=== PATIENT | female | born 1985 | race Caucasian/White ===

== ENCOUNTER 2020-05-19 15:26 | Emergency (ER) | payer OTHER, SELFPAY ==
--- NOTE | ~2020-05-19 | XR_ITS ---
EXAMINATION: XR hand LT min 3V DATE: 05/19/2020 15:54 INDICATION: Pain and bruising the region of the left second and third metacarpophalangeal joints. TECHNIQUE: Posteroanterior, oblique and lateral views of the left hand were obtained. COMPARISON: None. FINDINGS: Alignment is normal. No fracture. Joint spaces are normal. No cortical erosions or periosteal reactio n. Soft tissues are unremarkable. IMPRESSION: 1. Negative left hand radiographs. Reviewed, dictated and finalized at location A.
[2020-05-19 15:33] VITALS: BP 112/64; PULSE 109; RESP 20; TEMP 36.6; O2SAT 99
--- NOTE | 2020-05-19 15:42 | ED.GENADULT ---
HPI - General Adult General Chief complaint: Extremity Injury, Upper Stated complaint: left hand pain/bruising Time Seen by Provider: 05/19/20 15:42 Source: patient and RN notes reviewed Mode of arrival: ambulatory Limitations: no limitations History of Present Illness HPI narrative: This is a 34 years old female presented to the office for evaluations of left hand pain for 3 days. She noticed the swelling first before the bruising. She could not use her hand tomorrow hand at all today because of pain. She tried ibuprofen for pain. Denies direct trauma or injury. She is left hand dominated. Denies insect bite. Related Data Home Medications Medication Instructions Recorded Confirmed acyclovir 400 mg PO BID 05/19/20 05/19/20 amitriptyline 25 mg PO HS 05/19/20 05/19/20 conjugated estrogens [Premarin] 0.625 mg PO DAILY 05/19/20 05/19/20 escitalopram oxalate 5 mg PO DAILY 05/19/20 05/19/20 ibuprofen 600 mg PO TID 05/19/20 05/19/20 lorazepam 0.5 mg PO BID PRN 05/19/20 05/19/20 mirtazapine 30 mg PO DAILY 05/19/20 05/19/20 sumatriptan succinate 25 mg PO ONCE PRN 05/19/20 05/19/20 topiramate 25 mg PO DAILY 05/19/20 05/19/20 Allergies Allergy/AdvReac Type Severity Reaction Status Date / Time amoxicillin Allergy Intermediate Swelling Verified 05/19/20 15:41 Review of Systems Review of Systems: Narrative: CONSTITUTIONAL: Denies fever, chills ENT: Denies rhinorrhea, congestion, sore throat, otalgia. CARDIOVASCULAR: Denies chest pain, palpitation RESPIRATORY: Denies dyspnea, wheezing, cough GASTROINTESTINAL: Denies abdominal pain, nausea, vomiting SKIN: Reports left hand bruise MUSCULOSKELETAL: Reports left hand pain with swelling NEUROLOGIC: Denies lightheaded All other systems reviewed are negative, except as documented in HPI. [facility] Past Medical History Medical History Bipolar disorder Depression IBS (irritable bowel syndrome) Surgical History Surgical History History of section, low vertical Hx of appendectomy Comments At time of signature, I agree with nursing past medical, surgical, social and family history. There is no relevant family history pertinent to the presenting complaint. Exam Narrative: Exam Narrative: GENERAL: This is a well-nourished, well-developed patient, in no apparent distress. CARDIOVASCULAR: Regular rate and rhythm without murmurs, gallops, or rubs. RESPIRATORY: Clear to auscultation. Breath sounds equal bilaterally. No wheezes, rales, or rhonchi. GASTROINTESTINAL: Abdomen soft, non-tender, nondistended. Bowel sounds are active. No hepato-splenomegaly, or palpable masses. No guarding. SKIN: warm, intact with no suspicious lesions or rash, good texture and turgor. NEURO: awake, alert, and oriented to person, place and time. There were no obvious focal neurologic abnormalities. Steady gait EXTREMITIES: The dorsum of the hand is WITHOUT swollen; however there is tender to palpation between 1-3digits. The skin is intact. Flexion and extension of the fingers is full and strong. Ulnar and radial pulses intact. Negative Phalen's test/Tinel's sign. Negative Bharati test. Moffett Coma Scale Eye Opening: Spontaneous 4 Asim Coma Scale Motor: Obeys Commands 6 Moffett Coma Scale Verbal: Oriented 5 Course Vital Signs Vital signs: Vital Signs Temperature 97.9 F 05/19/20 15:33 Pulse Rate 109 H 05/19/20 15:33 Respiratory Rate 05/19/20 15:33 Blood Pressure 112/64 05/19/20 15:33 Pulse Oximetry 99 05/19/20 15:33 Temperature 97.9 F 05/19/20 15:33 Pulse Rate 109 H 05/19/20 15:33 Respiratory Rate 05/19/20 15:33 Blood Pressure 112/64 05/19/20 15:33 Pulse Oximetry 99 05/19/20 15:33 Medical Decision Making MDM Narrative Medical decision making narrative: Discharge instructions reviewed with patient, as well as provided in writing p
== END 2020-05-19 16:15 | disposition home or self-care (01) ==
PROVIDERS: Emergency Provider Nurse Practitioner; PCP Nurse Practitioner Family
DX: M77.9 Enthesopathy, unspecified (principal); F32.9 Major depressive disorder, single episode, unspecified
CPT/HCPCS: 73130; 99213; G0463

== ENCOUNTER 2020-06-08 12:53 | Outpatient (CLI) | payer OTHER, SELFPAY ==
--- NOTE | ~2020-06-08 | US_ITS ---
EXAMINATION: US pelvic complete w TV DATE: 06/08/2020 13:33 INDICATION: Dyspareunia, hysterectomy TECHNIQUE: Multiple transabdominal and endovaginal sonographic images of the pelvis were obtained. COMPARISON: None. FINDINGS: The uterus is surgically absent. The right ovary measures 2.2 x 2.0 x 1.8 cm. The left ovar y measures 4.7 x 3.7 x 2.3 cm. There is normal vascular flow in the ovaries. There is no free fluid i n the pelvis. IMPRESSION: 1. No sonographic correlate for the patient's symptoms. Reviewed, dictated and finalized at location B.
== END 2020-06-08 12:54 | disposition home or self-care (01) ==
PROVIDERS: PCP Nurse Practitioner Family; Visit Provider Nurse Practitioner Family
DX: F52.6 Dyspareunia not due to a substance or known physiological condition (principal)
CPT/HCPCS: 76830; 76856

== ENCOUNTER 2020-10-21 12:57 | Outpatient (CLI) | payer OTHER, SELFPAY ==
--- NOTE | ~2020-10-21 | CT_ITS ---
EXAMINATION: CT pelvis w con DATE: 10/21/2020 14:05 INDICATION: Chronic pelvic pain. TECHNIQUE: Computed tomography (CT) of the pelvis was performed with 100 mL Omnipaque 350 intravenous contrast. Automated exposure control and iterative reconstruction technique were employed. The dose- length product was 241.00 mGy-cm. COMPARISON: Pelvis ultrasound 06/08/2020 FINDINGS: There are no dilated loops of bowel. There are changes of appendectomy. There are changes o f hysterectomy. The ovaries are normal. There are no pathologically enlarged lymph nodes. There is tr danielle pelvic ascites. There are masses in the vulva bilaterally measuring up to 12 mm on the right. The bones are unremarkable. IMPRESSION: 1. Small masses in the vulva, likely cysts. Reviewed, dictated and finalized at location B. [employer]
== END 2020-10-21 12:58 | disposition home or self-care (01) ==
PROVIDERS: PCP Nurse Practitioner Family; Visit Provider Nurse Practitioner Family
DX: R10.2 Pelvic and perineal pain (principal)
CPT/HCPCS: 72193; Q9967

== ENCOUNTER 2021-03-03 08:59 | Outpatient (CLI) | payer OTHER, SELFPAY ==
--- NOTE | ~2021-03-03 | US_ITS ---
EXAMINATION: US soft tissue abdomen DATE: 03/03/2021 09:27 INDICATION: Left lower quadrant/pelvic pain. TECHNIQUE: Multiple grayscale and Doppler ultrasound images of the region of concern at the left pelv is were obtained including with Valsalva. COMPARISON: CT dated 10/21/2020 FINDINGS: Shadowing bowel is seen in the left lower quadrant/pelvic region of concern. Also seen along the ante rior left pelvic wall is a left ovary which measures 3.4 x 2.3 x 3.0 cm. Vascular flow seen on color Doppler in the left ovary with arterial and venous waveforms. No inguinal hernia. IMPRESSION: 1. Normal left ovary and no left inguinal hernia. Reviewed, dictated and finalized at location A.
== END 2021-03-03 09:00 | disposition home or self-care (01) ==
PROVIDERS: PCP Nurse Practitioner Family; Visit Provider Obstetrics & Gynecology
DX: R10.9 Unspecified abdominal pain (principal)
CPT/HCPCS: 76705

== ENCOUNTER 2021-05-10 10:00 | Outpatient (RCR) | payer OTHER, SELFPAY ==
--- NOTE | 2021-04-07 15:24 | PTOPEVAL ---
INITIAL PHYSICAL THERAPY EVALUATION and PLAN OF CARE Thank you for referring Lisa Alvarado to [facility].? Maris is scheduled to be seen for physical therapy? 2x/week for 2 weeks, 1x/wk x 4 wks. Please review, sign, date and return this plan of care GOLDIE. I agree with and certify that the following plan of care is medically necessary. Referring Physician Date Admitting Provider: Attending Provider: Katerine Macias MD Referring Provider: *PT Outpatient Evaluation Start: 04/07/21 13:36 Freq: Status: Active Protocol: Document 04/07/21 13:34 MARY (Rec: 04/07/21 15:13 MARY [id number]) Therapy Assessment Status Assessment Status Assessment Status Evaluation Outpatient Past Medical History Past Medical History Source of Past Medical History Recalled from Previous Visit, Confirmed with Patient/Family Gastrointestinal History Hx Appendectomy Yes Hx Irritable Bowel Yes Hx Other Gastrointestinal Disorders Yes: CONSTIPATION Genitourinary History Hx Bladder Surgery Yes: NICKED DURING - REPAIRED, reconstructed Hx Other Genitourinary Disorders Yes: CYSTOSCOPES POST C- SECTION, VESICOVAGINAL FISTULA Endocrine History Hx Hyperthyroidism Yes Hx Other Endocrine Disorders Yes: cyst on thyroid - drained 2005 Reproductive History Hx Section Yes: 2006 Hx Hysterectomy Yes: 10/09/2008 Hx Other Reproductive Disorders Yes: RIGHT BREAST TUMOR REMOVED-BENIGN,clips in breasts Psychosocial History Hx Bipolar Disorder Yes Hx Depression Yes Evaluation Information Problem Diagnosis pelvic and perineal pain Onset ~ 2 years ago - worsening Additional Evaluation Detail was born with 2 cervix, 2 uterus, 3 ovaries there was a wall within vagina cysts present within uteri Subjective Information Put on 50# since November 2019 - Query Text:As Reported By Patient/ intentional - was underweight Family at 100# Maris reports a stabbing pain - more on L side - lower abdominal region. Notices the discomfort with physical activity - or afterwards. Has limited the amount of weight that she picks up. Carries trays on R side. Increase in difficulty with urination and defecation.
--- NOTE | 2021-05-19 09:32 | PCPTNOTE ---
Patient did not show up for scheduled appointment this date. Follow up phone call made - Maris arnoldbetsy - Dad is very ill. Reminded her of next appointment on 05/24 at 8:00.
--- NOTE | 2021-05-24 08:30 | PCPTNOTE ---
Patient did not show up for scheduled appointment this date. When I spoke with Maris last week, she stated that her father was very ill. This was her re-eval appointment. Will await to see if she calls to reschedule missed appointments.
--- NOTE | 2021-06-13 16:07 | PCPTNOTE ---
PHYSICAL THERAPY DISCHARGE SUMMARY Admitting Provider: Attending Provider: Katerine Macias MD Patient:Lisa Alvarado Date of :1985 Maris has not returned for any further treatments since 05/10/2021. She did not show for her last 2 appointments due to illness with her father. Therefore she will be discharged at this time. Patient?s initial visit was on 04/07/2021 13:30 and she had a total of 5 visits. The goals have been partially met. Thank you for referring Maris to [facility]. Please review, sign, date and return this discharge summary GOLDIE. I have been updated about Maris's current status and I agree with discharge from the above service at this time. Referring Physician Date
== END 2021-06-23 07:43 | disposition home or self-care (01) ==
LOC: ANHPT 10:00
PROVIDERS: PCP Nurse Practitioner Family; Visit Provider Obstetrics & Gynecology
DX: R10.2 Pelvic and perineal pain (principal)
CPT/HCPCS: 97110; 97140; 97162

== ENCOUNTER 2022-12-11 14:19 | Emergency (ER) | payer OTHER, SELFPAY ==
--- NOTE | 2022-12-11 14:23 | ED.EAR ---
HPI - Ear Problem General Chief complaint: Ear Stated complaint: ear infection Time Seen by Provider: 12/11/22 14:27 Source: patient and RN notes reviewed Mode of arrival: ambulatory Limitations: no limitations History of Present Illness HPI Narrative: 37-year-old female presents concern for left ear pain for 2 days. She reports nasal congestion, rhinorrhea, some dry throat. She reports she has taken ibuprofen without relief. She denies fever, drainage from the ear. MD Complaint: ear pain Related Data Home Medications Medication Instructions Recorded Confirmed amitriptyline 25 mg tablet 25 mg PO HS 05/19/20 12/11/22 conjugated estrogens 0.625 mg 0.625 mg PO DAILY 05/19/20 12/11/22 tablet (Premarin) escitalopram oxalate 5 mg tablet 5 mg PO DAILY 05/19/20 12/11/22 aripiprazole 5 mg tablet 5 mg PO DAILY 12/11/22 12/11/22 Allergies Allergy/AdvReac Type Severity Reaction Status Date / Time amoxicillin Allergy Intermediate Swelling Verified 12/11/22 14:28 Review of Systems Review of Systems: CONSTITUTIONAL: Denies malaise, chills, sweats, or fever. EYES: Denies visual changes, redness, or discharge. ENT: Reports rhinorrhea, congestion. Denies sinus pain, and sore throat. Reports left ear pain CARDIOVASCULAR: Denies chest pain, palpitations, or edema. RESPIRATORY: Denies cough. Denies dyspnea. GASTROINTESTINAL: Denies abdominal pain, nausea, vomiting, diarrhea SKIN: Denies rash or itching. MUSCULOSKELETAL: Denies myalgia. NEUROLOGIC: Denies headache. All systems reviewed & are unremarkable except as noted in HPI and below PMFSH Past Medical History Medical History (Updated 12/11/22 @ 14:35 by Nita Hoffmann NP) Bipolar disorder Depression IBS (irritable bowel syndrome) Surgical History Surgical History History of section, low vertical Hx of appendectomy Comments At time of signature, agree with nursing past medical, surgical, social and family history. There is no relevant family history pertinent to the presenting complaint Exam Narrative: GENERAL: Well-appearing, well-nourished, and in no acute distress. HEAD: Normocephalic EYES: PERRLA, conjunctivae clear ENT: Nares clear, turbinates edematous, clear discharge. Mucous membranes moist. TM pearly rosales with sharp light reflex bilaterally; no tragal tenderness. Oropharynx not erythematous without lesions. Tonsils not enlarged and without exudate, no drooling, no hoarseness, no trismus, uvula midline. NECK: Supple. No lymphadenopathy CHEST: Clear to auscultation, breath sounds equal. No wheezing, rhonchi, rales, or stridor. No respiratory distress, speaks in full sentences. HEART: Regular rate and rhythm. No murmur heard. SKIN: Warm, dry, no rash. NEURO: Alert and oriented x3. PSYCH: Normal mood and affect Course Course Emergency Course: Patient is aware of diagnosis, understands and agrees to treatment plan. Anticipatory guidance given. Patient agrees to follow-up as directed and is aware of reasons to seek care at the emergency department. Portions of this record may have been created with voice recognition software Level of Care: Express Care Visit Vital Signs Vital signs: Reviewed. Medical Decision Making MDM Narrative Medical decision making narrative: Differential diagnosis considered: Wood virus, strep pharyngitis, allergic rhinitis, upper respiratory tract infection, sinusitis, rhinosinusitis, nasopharyngitis. viral pharyngitis, otitis media, otitis externa, otitis effusion, cerumen impaction, foreign body. Exam findings show no acute concerns or changes; patient is non-toxic appearing and is in no distress. Patient is appropriate for outpatient treatment and follow-up. Critical Care Time Critical Care Time Critical Care Time: No Discharge Plan Discharge Clinical Impression: Upper respiratory infection Patient Disposition: Home, Self-Care Condition: Stable
[2022-12-11 14:25] VITALS: BP 116/70; PULSE 90; RESP 16; TEMP 36.7; O2SAT 100
== END 2022-12-11 14:40 | disposition home or self-care (01) ==
PROVIDERS: Emergency Provider Nurse Practitioner; PCP Nurse Practitioner Family
DX: F32.A Depression, unspecified (principal)
CPT/HCPCS: 99213; G0463

== ENCOUNTER 2023-07-16 14:02 | Emergency (ER) | payer OTHER, SELFPAY ==
--- NOTE | 2023-07-16 14:10 | ED.URI ---
HPI - URI/Sore Throat General Chief Complaint: Upper Respiratory Infection Stated Complaint: Chest Congestion/Cough Time Seen by Provider: 07/16/23 14:20 Source: patient Mode of arrival: ambulatory Limitations: no limitations History of Present Illness HPI Narrative: Lisa is a 37-year-old female patient presenting to the clinic today with complaints of chest congestion, sore throat, and cough that began this morning. Did have COVID 2 months ago. Denies any shortness of breath or chest pain. States she does have some nasal congestion, chest congestion, and a cough. No fever or chills. No known exposure to anybody with COVID, flu, or strep MD elicited complaint: sore throat and nasal congestion Related Data Home Medications Medication Instructions Recorded Confirmed amitriptyline 25 mg tablet 25 mg PO HS 05/19/20 12/11/22 conjugated estrogens 0.625 mg 0.625 mg PO DAILY 05/19/20 12/11/22 tablet (Premarin) escitalopram oxalate 5 mg tablet 5 mg PO DAILY 05/19/20 12/11/22 aripiprazole 5 mg tablet 5 mg PO DAILY 12/11/22 12/11/22 Allergies Allergy/AdvReac Type Severity Reaction Status Date / Time amoxicillin Allergy Intermediate Swelling Verified 12/11/22 14:28 Review of Systems Review of Systems: Pertinent positives per HPI. Patient denies any fever, chills, rash, headache, visual changes, dizziness, cough, shortness of breath, chest pain, palpitations, nausea, vomiting, diarrhea, constipation, abdominal pain, or any urinary issues. [facility] Past Medical History Medical History (Updated 07/16/23 @ 14:27 by Allen Hernandez APRN) Bipolar disorder Depression IBS (irritable bowel syndrome) Surgical History Surgical History History of section, low vertical Hx of appendectomy Comments At the time of my signature, I reviewed and agree with the nursing past medical, surgical, social, and family history. There is no relevant family history pertinent to the patient complaint. Exam Narrative: General: Well-developed, well nourished, in no apparent distress Head: Normocephalic, atraumatic Eyes: Pupils equally round and reactive to light bilaterally, EOM intact, sclera and conjunctive clear, no discharge, lids normal Ears: TMs intact and congested, ear canals clear, no drainage, grossly hearing normal. Nose: Nares patent, clear nasal discharge, mild inflammation, no sinus tenderness. Mouth: Oral pharynx without lesions or masses, good dentition, MMM. Neck: Supple, trachea midline, no enlargement of anterior or posterior cervical nodes, no thyroid masses or goiter palpable. Cardio: Regular rate and rhythm, s1 and s2 normal, no murmur appreciated. Resp: Clear to auscultation bilaterally, no rhonchi, rales, wheezing or rubs Course Course Emergency Course: Portions of this record may have been created with voice recognition software. Level of Care: Express Care Visit Vital Signs Vital signs: Vital signs reviewed MDM - URI/Sore Throat MDM Narrative Medical decision making narrative: At the time of visit patient is resting comfortably on exam table. Strep screen was obtained was negative. Patient has had COVID 2 months ago sore do not feel as though testing for COVID is necessary at this time. She denies any fever, chills, body aches so no flu test was completed. I suspect patient has URI. Supportive measures were discussed with the patient she voiced understanding of discharge instructions agrees to treatment plan Differential Diagnosis Differential diagnosis: Likely upper respiratory infection, otitis media, sinusitis, viral infection, bronchitis, influenza, pharyngitis and other (COVID) Discharge Plan Discharge Clinical Impression: Upper respiratory infection Patient Disposition: Home, Self-Care Condition: Stable Instructions: Antibiotic Form, Upper Respiratory Infection (ED), Postnasal Drip (DC) Additional In
== END 2023-07-16 14:32 | disposition home or self-care (01) ==
PROVIDERS: Emergency Provider Nurse Practitioner Family; PCP Nurse Practitioner Family
DX: J06.9 Acute upper respiratory infection, unspecified (principal); F32.A Depression, unspecified; Z86.16 Personal history of COVID-19
CPT/HCPCS: 87081; 87880; 99213; G0463

== ENCOUNTER 2023-10-09 08:58 | Emergency (ER) | payer OTHER, SELFPAY ==
--- NOTE | ~2023-10-09 | XR_ITS ---
Right Hand Technique: PA, oblique, and lateral views were obtained. Clinical History: Pain Findings: No acute fracture or dislocation is seen. Osseous alignment is anatomic. Joint spaces are p reserved. Soft tissues are unremarkable. Impression: Unremarkable right hand. 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
[2023-10-09 09:08] VITALS: BP 122/72; PULSE 88; RESP 20; TEMP 36.8; O2SAT 99
--- NOTE | 2023-10-09 09:34 | ED.UPPEXIN ---
HPI - Extremity Injury (Upper) General Chief Complaint: Extremity Injury, Upper Stated Complaint: right hand injury Time Seen by Provider: 10/09/23 09:34 Source: patient, RN notes reviewed and old records reviewed Mode of arrival: ambulatory Limitations: no limitations History of Present Illness HPI narrative: 37 year old female who presents to [facility] care with complaints of falling on Sunday in kitchen on linoleum floor and trying to catch herself with her right hand and landed hitting dorsal area of her right hand. Patient has pain along the dorsal aspect of her 2nd and 3rd finger proximal knuckle region with some swelling noted to dorsal hand with no ecchymosis noted. Patient is able to move right hand and fingers without difficulty but with some stated pain. Patient has been taking Ibuprofen for her discomfort. Patient is left hand dominant. MD complaint: injury to: right and hand Onset (ago): day(s) (on Sunday day 3 of symptoms.) Handedness: left Place: home Severity scale (1-10): 7 Treatments prior to arrival: NSAIDS Related Data Home Medications Medication Instructions Recorded Confirmed conjugated estrogens 0.625 mg 0.625 mg PO DAILY 05/19/20 10/09/23 tablet (Premarin) aripiprazole 5 mg tablet 5 mg PO DAILY 12/11/22 10/09/23 lorazepam 1 mg tablet 1 mg PO TID PRN Anxiety 09/12/23 10/09/23 amitriptyline 50 mg tablet 50 mg PO QHS 10/09/23 10/09/23 cholecalciferol (vitamin D3) 1,250 1,250 mcg PO WEEKLY 10/09/23 10/09/23 mcg (50,000 unit) capsule escitalopram oxalate 10 mg tablet 10 mg PO DAILY 10/09/23 10/09/23 ropinirole 0.5 mg tablet 0.5 mg PO TID 10/09/23 10/09/23 Allergies Allergy/AdvReac Type Severity Reaction Status Date / Time amoxicillin Allergy Intermediate Swelling Verified 10/09/23 09:23 Review of Systems Review of Systems: CONSTITUTIONAL: Denies fever, chills, or sweats. EYES: Denies visual changes, redness, or discharge. ENT: Denies rhinorrhea, congestion, sore throat, or otalgia. CARDIOVASCULAR: Denies chest pain, palpitations, or edema. RESPIRATORY: Denies cough or dyspnea. GASTROINTESTINAL: Denies abdominal pain, nausea, vomiting, or diarrhea. GENITOURINARY: Denies dysuria or hematuria. SKIN: Denies rash or itching. MUSCULOSKELETAL: Denies back pain, positive for right dorsal hand pain and swelling, or myalgia. NEUROLOGIC: Denies headache, numbness, or weakness. PSYCHIATRIC: Reports history of anxiety or depression. All systems reviewed & are unremarkable except as noted in HPI and below PMFSH Past Medical History Medical History Bipolar disorder Depression IBS (irritable bowel syndrome) Surgical History Surgical History H/O: hysterectomy History of bladder surgery History of section, low vertical Hx of appendectomy Family History Family History Mother Cervical cancer Grandparent Heart disease Social History Social History Smoking status: Former smoker Alcohol intake: never Substance use: current Substance use type: marijuana Lack of Transportation: No Lack of Food: Never True Current Housing: I Have Housing Concerned About Future Housing: No Difficulty Paying Gas/Electric Bills: No Difficulty Paying for Meds: No Currently Unemployed: No Education: High School Diploma/GED Difficulty w/ Childcare or Family Care: No Living arrangements: with family Occupation/Education: occupation Gender identity (if verbalized by the patient): Female Sexual Orientation (if Verbalized by the Patient): Straight or Heterosexual Comments At time of signature, agree with nursing past medical, surgical, social and family history. There is no relevant family history pertinent to the presenting complaint Exam Narrative: GENERAL
== END 2023-10-09 10:07 | disposition home or self-care (01) ==
PROVIDERS: Emergency Provider Registered Nurse; PCP Nurse Practitioner Family
DX: S60.221A Contusion of right hand, initial encounter (principal); Z79.899 Other long term (current) drug therapy; Z87.891 Personal history of nicotine dependence; W18.30XA Fall on same level, unspecified, initial encounter; Y92.000 Kitchen of unspecified non-institutional (private) residence as the place of occurrence of the external cause
CPT/HCPCS: 73130; 99213; G0463

== ENCOUNTER 2023-11-20 10:17 | Emergency (ER) | payer OTHER, SELFPAY ==
[2023-11-20 10:24] VITALS: BP 125/69; PULSE 80; RESP 14; TEMP 36.7; O2SAT 100
--- NOTE | 2023-11-20 10:58 | ED.URI ---
HPI - URI/Sore Throat General Chief Complaint: Upper Respiratory Infection Stated Complaint: drainage/cough Time Seen by Provider: 11/20/23 10:59 Source: patient, RN notes reviewed and old records reviewed Mode of arrival: ambulatory Limitations: no limitations History of Present Illness HPI Narrative: 38-year-old female who presents to [facility] Care with 3 day history of cough, sinus congestion, drainage with pressure and headache for the past 3 days. Patient reports that she has no sore throat or any fevers or body aches, reports some rib pain related to frequent cough. Patient reports that she has been taking OTC Tylenol and cold and sinus medications for her symptoms. Patient reports no shortness of breath, nausea or vomiting or diarrhea. MD elicited complaint: cough, rhinorrhea, nasal congestion and sinus pain Pertinent past history: sinusitis and other (former smoker quit 6 months ago) Onset (ago): day(s) (3) Severity: mild Treatments prior to arrival: other (Tylenol cold and sinus) Related Data Home Medications Medication Instructions Recorded Confirmed conjugated estrogens 0.625 mg 0.625 mg PO DAILY 05/19/20 11/20/23 tablet (Premarin) aripiprazole 5 mg tablet 5 mg PO DAILY 12/11/22 11/20/23 lorazepam 1 mg tablet 1 mg PO TID PRN Anxiety 09/12/23 11/20/23 amitriptyline 50 mg tablet 50 mg PO QHS 10/09/23 11/20/23 cholecalciferol (vitamin D3) 1,250 1,250 mcg PO WEEKLY 10/09/23 11/20/23 mcg (50,000 unit) capsule escitalopram oxalate 10 mg tablet 10 mg PO DAILY 10/09/23 11/20/23 ropinirole 0.5 mg tablet 0.5 mg PO TID 10/09/23 11/20/23 Allergies Allergy/AdvReac Type Severity Reaction Status Date / Time amoxicillin Allergy Intermediate Swelling Verified 11/20/23 11:00 Review of Systems Review of Systems: CONSTITUTIONAL: Reports malaise, no chills, sweats, or fever. EYES: Denies visual changes, redness, or discharge. ENT: Reports rhinorrhea, congestion, sinus pain,no otalgia and no sore throat. CARDIOVASCULAR: Denies chest pain, palpitations, or edema. RESPIRATORY: Reports cough.? Denies dyspnea.reports rib discomfort from coughing GASTROINTESTINAL: Denies abdominal pain, nausea, vomiting, diarrhea SKIN: Denies rash or itching. MUSCULOSKELETAL: Denies myalgia. NEUROLOGIC: Reports headache. All systems reviewed & are unremarkable except as noted in HPI and below PMFSH Past Medical History Medical History Bipolar disorder Depression IBS (irritable bowel syndrome) Surgical History Surgical History H/O: hysterectomy History of bladder surgery History of section, low vertical Hx of appendectomy Family History Family History Mother Cervical cancer Grandparent Heart disease Social History Social History (Updated 11/20/23 @ 11:11 by Jessica Calix NP) Smoking status: Former smoker Additional smoking assessment comments: Quit 6 months ago Alcohol intake: never Substance use: current Substance use type: marijuana Lack of Transportation: No Lack of Food: Never True Current Housing: I Have Housing Concerned About Future Housing: No Difficulty Paying Gas/Electric Bills: No Difficulty Paying for Meds: No Currently Unemployed: No Education: High School Diploma/GED Difficulty w/ Childcare or Family Care: No Living arrangements: with family Occupation/Education: occupation Gender identity (if verbalized by the patient): Female Sexual Orientation (if Verbalized by the Patient): Straight or Heterosexual Comments At time of signature, agree with nursing past medical, surgical, social and family history. There is no relevant family history pertinent to the presenting complaint Exam Narrative: GENERAL: Well-appearing, well-nourished, and in no acute distress. HEAD: Normocephalic
== END 2023-11-20 11:17 | disposition left against medical advice (07) ==
PROVIDERS: Emergency Provider Registered Nurse; PCP Nurse Practitioner Family
DX: J06.9 Acute upper respiratory infection, unspecified (principal); Z20.822 Contact with and (suspected) exposure to COVID-19; Z87.891 Personal history of nicotine dependence; F12.90 Cannabis use, unspecified, uncomplicated; F41.9 Anxiety disorder, unspecified
CPT/HCPCS: 87426; 87804; 99213; G0463

== ENCOUNTER 2023-11-25 09:59 | Emergency (ER) | payer OTHER, SELFPAY ==
[2023-11-25 10:02] VITALS: BP 125/71; PULSE 104; RESP 20; TEMP 36.8; O2SAT 100
--- NOTE | 2023-11-25 10:26 | ED.GENADULT ---
HPI - General Adult General Chief complaint: Upper Respiratory Infection Stated complaint: congestion/cough/headache Time Seen by Provider: 11/25/23 10:26 Source: patient, RN notes reviewed and old records reviewed Mode of arrival: ambulatory Limitations: no limitations History of Present Illness HPI narrative: 38 year old female who presents to the [facility] care with complaints of 10 day history of continued yellow sinus drainage with some blood streaks now,, cough worse at night, headache worsening . Patient was seen on Sunday and prescribed steroids with no improvement in her symptoms. Patient denies any fevers, shortness of breath, no nausea vomiting or diarrhea. Patient has been taking Advil cold and sinus and also some NyQuil MD complaint: sinus congetion and drainage ,cough and headaches. Onset (ago): day(s) () Severity scale (1-10): 8 Treatments prior to arrival: other (Advil cold and sinus,Steroid and NyQuil) Related Data Home Medications Medication Instructions Recorded Confirmed conjugated estrogens 0.625 mg 0.625 mg PO DAILY 05/19/20 11/25/23 tablet (Premarin) aripiprazole 5 mg tablet 5 mg PO DAILY 12/11/22 11/25/23 lorazepam 1 mg tablet 1 mg PO TID PRN Anxiety 09/12/23 11/25/23 amitriptyline 50 mg tablet 50 mg PO QHS 10/09/23 11/25/23 cholecalciferol (vitamin D3) 1,250 1,250 mcg PO WEEKLY 10/09/23 11/25/23 mcg (50,000 unit) capsule escitalopram oxalate 10 mg tablet 10 mg PO DAILY 10/09/23 11/25/23 ropinirole 0.5 mg tablet 0.5 mg PO TID 10/09/23 11/25/23 Allergies Allergy/AdvReac Type Severity Reaction Status Date / Time amoxicillin Allergy Intermediate Swelling Verified 11/25/23 10:24 Review of Systems Review of Systems: CONSTITUTIONAL:Reports malaise,no chills, sweats, or fever. EYES: Denies visual changes, redness, or discharge. ENT: Reports rhinorrhea, congestion, sinus pain, no otalgia and no sore throat. CARDIOVASCULAR: Denies chest pain, palpitations, or edema. RESPIRATORY: Reports cough.? Denies dyspnea increased cough at night GASTROINTESTINAL: Denies abdominal pain, nausea, vomiting, diarrhea SKIN: Denies rash or itching. MUSCULOSKELETAL: Denies myalgia. NEUROLOGIC: reports frontal headache. All systems reviewed & are unremarkable except as noted in HPI and below PMFSH Past Medical History Medical History Bipolar disorder Depression IBS (irritable bowel syndrome) Surgical History Surgical History H/O: hysterectomy History of bladder surgery History of section, low vertical Hx of appendectomy Family History Family History Mother Cervical cancer Grandparent Heart disease Social History Social History Smoking status: Former smoker Additional smoking assessment comments: Quit 6 months ago Alcohol intake: never Substance use: current Substance use type: marijuana Lack of Transportation: No Lack of Food: Never True Current Housing: I Have Housing Concerned About Future Housing: No Difficulty Paying Gas/Electric Bills: No Difficulty Paying for Meds: No Currently Unemployed: No Education: High School Diploma/GED Difficulty w/ Childcare or Family Care: No Living arrangements: with family Occupation/Education: occupation Gender identity (if verbalized by the patient): Female Sexual Orientation (if Verbalized by the Patient): Straight or Heterosexual Comments At time of signature, agree with nursing past medical, surgical, social and family history. There is no relevant family history pertinent to the presenting complaint Exam Narrative: GENERAL: Well-appearing, well-nourished, and in no acute distress. HEAD: Normocephalic EYES: PERRLA, conjunctivae clear ENT: Nares clear, turbinates edematous
== END 2023-11-25 10:50 | disposition home or self-care (01) ==
PROVIDERS: Emergency Provider Registered Nurse; PCP Nurse Practitioner Family
DX: J01.90 Acute sinusitis, unspecified (principal); Z87.891 Personal history of nicotine dependence; F12.90 Cannabis use, unspecified, uncomplicated; F32.A Depression, unspecified
CPT/HCPCS: 99213; G0463

== ENCOUNTER 2024-05-13 16:23 | Emergency (ER) | payer OTHER, SELFPAY ==
--- NOTE | ~2024-05-13 | XR_ITS ---
XR chest 2V Ordering provider: Lan Alfred MD History: 38 years Female with . chest pain x 1 day . Comparison: None. FINDINGS: MEDIASTINUM: The cardiac silhouette is not enlarged. LUNGS: No infiltrates, effusions or pneumothorax. OTHER: No free air under the diaphragm. IMPRESSION: No acute cardiopulmonary pathology. Reviewed, dictated and finalized at location A.
--- NOTE | 2024-05-13 16:24 | ECG_ITS ---
Test Date: 2024-05-13 16:27:26 Measurements Intervals Andrews Rate: 107 P: 46 CT: 129 QRS: 18 QRSD: 90 T: 22 QT: 331 QTc: 443 Interpretive Statements SINUS TACHYCARDIA POSSIBLE LEFT ATRIAL ENLARGEMENT [-0.1mV P WAVE IN V1/V2] INCOMPLETE RIGHT BUNDLE BRANCH BLOCK NONSPECIFIC ST AND T-WAVE ABNORMALITY No previous ECG available for comparison Electronically Signed On 05-14-2024 09:24:14 CDT by Deena Handy M.D.
[2024-05-13 16:25] VITALS: BP 118/78; PULSE 107; RESP 16; TEMP 36.6; O2SAT 100
[2024-05-13 17:00] LABS: Basophils Absolute Auto 0.1 K/mm3 (0.0-0.1); Basophils Percent Auto 0.5 % (0.2-1.2); Eosinophils Absolute Auto 0.2 K/mm3 (0-0.3); Hematocrit 37.8 % (37.0-47.0); Hemoglobin 12.8 g/dL (12.0-15.0); Immature Granulocyte Absolute 0.07 K/mm3 (0.00-0.031); Immature Granulocyte Percent A 0.8 % (0-0.5); Lymphocytes Absolute Auto 3.64 K/mm3 (0.9-3.2); Lymphocytes Percent Auto 39.1 % (18.3-44.2); Mean Corpuscular HGB Conc 33.9 g/dl (32-36); Mean Corpuscular Hemoglobin 31.5 pg (26-34); Mean Corpuscular Volume 93.1 fl (80-100); Mean Platelet Volume 10.2 fl (7.4-10.4); Monocytes Absolute Auto 0.6 K/mm3 (0.1-0.6); Monocytes Percent Auto 5.9 % (2.6-8.5); Neutrophils Absolute Auto 4.8 K/mm3 (1.3-6.7); Neutrophils Percent Auto 51.7 % (45.5-73.1); Platelet Count Result 295 k/mm3 (150-375); Red Blood Count 4.06 M/mm3 (4.2-5.4); Red Cell Distribution Width 13.2 % (11.5-14.5); White Blood Count 9.3 K/mm3 (4.5-10.0)
[2024-05-13 17:05] LABS: INR 0.9; Partial Thromboplastin Time 23.9 Seconds (22.3-36.8); Prothrombin Time 12.4 Seconds (11.1-14.7)
[2024-05-13 17:17] LABS: Alanine Aminotransferase 16 U/L (6-35); Albumin Level 4.1 g/dL (3.5-5.1); Alkaline Phosphatase 52 U/L (38-126); Anion Gap 10 mmol/L (4-12); Aspartate Amino Transferase 27 U/L (14-36); Bilirubin,Total 0.5 mg/dL (0.2-1.3); Blood Urea Nitrogen 9 mg/dL (7-17); Calcium 8.7 mg/dL (8.4-10.2); Carbon Dioxide 23 mmol/L (22-30); Chloride 101 mmol/L (98-107); Estimated CRCL calculation 95 ml/min; Estimated Glomerular Filt Rate > 60; Glucose 110 mg/dL (65-110); Lipase 27 U/L (23-300); Potassium 3.8 mmol/L (3.4-5.0); Sodium 134 mmol/L (137-145)
[2024-05-13 17:23] LABS: Troponin I < 0.012 ng/mL (0.000-0.034)
--- NOTE | 2024-05-13 19:44 | PC.NURSE ---
Pt ambulated to the front desk receptionist and stated she was going to leave. Pt encouraged to stay and be seen. Pt states she will come back if she feels worse and ambulated out of the ED.
== END 2024-05-13 20:59 | disposition left against medical advice (07) ==
PROVIDERS: Emergency Provider Emergency Medicine; PCP Nurse Practitioner Family
DX: R07.2 Precordial pain (principal)
CPT/HCPCS: 36415; 71046; 80053; 83690; 84484; 85025; 85610; 85730; 93005; 99199

== ENCOUNTER 2024-06-27 13:59 | Emergency (ER) | payer OTHER, SELFPAY ==
[2024-06-27 14:05] VITALS: BP 121/86; PULSE 93; RESP 16; TEMP 36.6; O2SAT 100
--- NOTE | 2024-06-27 14:41 | ED.URI ---
HPI - URI/Sore Throat General Chief Complaint: Upper Respiratory Infection Stated Complaint: Cough/Shortness of Breath Time Seen by Provider: 06/27/24 14:33 Source: patient and RN notes reviewed Mode of arrival: ambulatory Limitations: no limitations History of Present Illness HPI Narrative: Patient presents today with a 2 day history of cough, sweats. Denies any additional symptoms to include congestion, rhinorrhea, sore throat, fever, shortness of breath. She has tried her albuterol inhaler and Delsym without much relief. History of chronic bronchitis. Patient states she has recently switched from a regular vape to a plant based vape and didn't realize it was a different kind that she was not used to. She is unsure if this is the cause of her cough or if she is developing a cold. Related Data Home Medications Medication Instructions Recorded Confirmed conjugated estrogens 0.625 mg 0.625 mg PO DAILY 05/19/20 06/27/24 tablet (Premarin) aripiprazole 5 mg tablet 20 mg PO DAILY 12/11/22 06/27/24 lorazepam 1 mg tablet 1 mg PO TID PRN Anxiety 09/12/23 06/27/24 amitriptyline 50 mg tablet 75 mg PO QHS 10/09/23 06/27/24 cholecalciferol (vitamin D3) 1,250 1,250 mcg PO WEEKLY 10/09/23 06/27/24 mcg (50,000 unit) capsule escitalopram oxalate 10 mg tablet 10 mg PO DAILY 10/09/23 06/27/24 ropinirole 0.5 mg tablet 0.5 mg PO TID 10/09/23 06/27/24 albuterol sulfate 90 mcg/actuation 2 inh inhalation PRN PRN Shortness 06/27/24 06/27/24 aerosol inhaler Of Breath mirabegron 25 mg tablet,extended 25 mg PO DAILY 06/27/24 06/27/24 release 24 hr (Myrbetriq) Allergies Allergy/AdvReac Type Severity Reaction Status Date / Time amoxicillin Allergy Intermediate Swelling Verified 06/27/24 14:23 Review of Systems Review of Systems: CONSTITUTIONAL: Denies body aches, fever, chills. + sweats EYES: Denies visual changes, redness, or discharge. ENT: Denies rhinorrhea, congestion, sore throat, or otalgia. CARDIOVASCULAR: Denies chest pain, palpitations, or edema. RESPIRATORY: Denies dyspnea.+ cough GASTROINTESTINAL: Denies abdominal pain, nausea, vomiting, or diarrhea. GENITOURINARY: Denies dysuria or hematuria. SKIN: Denies rash, itching, or wounds. MUSCULOSKELETAL: Denies back pain, joint pain, or myalgia. NEUROLOGIC: Denies headache, numbness, tingling, or weakness. PSYCH: Denies depression or anxiety. [facility] Past Medical History Medical History Bipolar disorder Depression IBS (irritable bowel syndrome) Surgical History Surgical History H/O: hysterectomy History of bladder surgery History of section, low vertical Hx of appendectomy Family History Family History Mother Cervical cancer Grandparent Heart disease Social History Social History Smoking status: Former smoker Additional smoking assessment comments: Quit 6 months ago Alcohol intake: never Substance use: current Substance use type: marijuana Lack of Transportation: No Lack of Food: Never True Current Housing: I Have Housing Concerned About Future Housing: No Difficulty Paying Gas/Electric Bills: No Difficulty Paying for Meds: No Currently Unemployed: No Education: High School Diploma/GED Difficulty w/ Childcare or Family Care: No Living arrangements: with family Occupation/Education: occupation Gender identity (if verbalized by the patient): Female Sexual Orientation (if Verbalized by the Patient): Straight or Heterosexual Comments At time of signature, I have reviewed and agree with nursing past medical, surgical, social and family history unless otherwise noted. Please see nursing chart for further information. There is no relevant family history pertinent to the present
== END 2024-06-27 14:50 | disposition home or self-care (01) ==
PROVIDERS: Emergency Provider Nurse Practitioner
DX: R05.1 Acute cough (principal); F32.A Depression, unspecified; F17.290 Nicotine dependence, other tobacco product, uncomplicated
CPT/HCPCS: 99213; G0463

== ENCOUNTER 2024-07-11 08:02 | Outpatient (CLI) | payer OTHER, SELFPAY ==
--- NOTE | ~2024-07-11 | XR_ITS ---
Clinical Indication: Cough PA and lateral views of the chest: Comparison: 05/13/2024 Findings: The lungs are clear, without evidence of focal consolidation or pleural effusion. Cardiome diastinal silhouette is within normal limits. Bones and soft tissues are unremarkable. Impression: Normal chest. Reviewed, dictated and finalized at location . Impression: Normal chest.
== END 2024-07-11 08:03 | disposition home or self-care (01) ==
DX: R05.9 Cough, unspecified (principal)
CPT/HCPCS: 71046

== ENCOUNTER 2024-07-24 17:20 | Emergency (ER) | payer OTHER, SELFPAY ==
[2024-07-24 18:14] VITALS: BP 132/86; PULSE 97; RESP 16; TEMP 36.3; O2SAT 100
--- NOTE | 2024-07-24 18:35 | ED_ITS ---
HPI - Dental/Oral General Chief complaint: Dental/Oral Stated complaint: Tooth pain Time Seen by Provider: 07/24/24 18:35 Source: patient, RN notes reviewed and old records reviewed Mode of arrival: ambulatory Limitations: no limitations History of Present Illness HPI Narrative: 38-year-old female to Express Care with complaint of lower left posterior gingival pain. Patient states that she had to molars old on Sunday. Patient reports increasing redness, swelling and pain in the area. denies throat swelling, difficulty swallowing, fever. Patient able to tolerate fluids by mouth. Patient sitting uncomfortably in exam room. Respirations even and nonlabored. Patient in no acute distress. Related Data Home Medications Medication Instructions Recorded Confirmed conjugated estrogens 0.625 mg 0.625 mg PO DAILY 05/19/20 07/24/24 tablet (Premarin) aripiprazole 5 mg tablet 20 mg PO DAILY 12/11/22 07/24/24 amitriptyline 50 mg tablet 75 mg PO QHS 10/09/23 07/24/24 cholecalciferol (vitamin D3) 1,250 1,250 mcg PO WEEKLY 10/09/23 07/24/24 mcg (50,000 unit) capsule escitalopram oxalate 10 mg tablet 10 mg PO DAILY 10/09/23 07/24/24 albuterol sulfate 90 mcg/actuation 2 inh inhalation PRN PRN Shortness 06/27/24 07/24/24 aerosol inhaler Of Breath mirabegron 25 mg tablet,extended 25 mg PO DAILY 06/27/24 07/24/24 release 24 hr (Myrbetriq) escitalopram oxalate 20 mg tablet 20 mg PO DAILY 07/24/24 07/24/24 escitalopram oxalate 5 mg tablet 5 mg PO DAILY 07/24/24 07/24/24 Allergies Allergy/AdvReac Type Severity Reaction Status Date / Time amoxicillin Allergy Intermediate Swelling Verified 06/27/24 14:23 Review of Systems Review of Systems: All systems reviewed & are unremarkable except as noted in HPI and below Constitutional: Constitutional: Reports no additional constitutional complaints Eyes: Eyes: Reports no additional eye complaints ENT: Reports as per HPI and Reports mouth pain ( Left lower posterior) Cardiovascular: Cardiovascular: Reports no additional cardiovascular complaints, Denies chest pain and Denies dyspnea Respiratory: Respiratory: Reports no additional respiratory complaints, Denies cough and Denies dyspnea Musculoskeletal: Musculoskeletal: Reports no additional musculoskeletal complaints Neurologic: Reports system reviewed and no additional complaints, except as documented Psychiatric: Psychiatric: Reports no additional psychiatric complaints PMFSH Past Medical History Medical History Bipolar disorder Depression IBS (irritable bowel syndrome) Surgical History Surgical History H/O: hysterectomy History of bladder surgery History of section, low vertical Hx of appendectomy Family History Family History Mother Cervical cancer Grandparent Heart disease Social History Social History Smoking status: Former smoker Additional smoking assessment comments: Quit 6 months ago Alcohol intake: never Substance use: current Substance use type: marijuana Lack of Transportation: No Lack of Food: Never True Current Housing: I Have Housing Concerned About Future Housing: No Difficulty Paying Gas/Electric Bills: No Difficulty Paying for Meds: No Currently Unemployed: No Education: High School Diploma/GED Difficulty w/ Childcare or Family Care: No Living arrangements: with family Occupation/Education: occupation Gender identity (if verbalized by the patient): Female Sexual Orientation (if Verbalized by the Patient): Straight or Heterosexual Comments At the time of my signature, I reviewed and agree with the nursing past medical, surgical, social, and family history. There is no relevant family history pertinent to the patient complaint. Exam Const: General: cooperative, no acute distress, alert, in distress moderate ( pain), tired appearing, uncomfortable and well nourished Nutritional Appearance: well nourished Orientation/consciousness: patient oriented x3 Limitations: no limitations HENMT: Head: normal to inspection Ears: external ears normal Face/Nose/Sinus: Normal external nose present, Normal nares present, normal facial exam, No erythema and No edema Face and sinus: normal facial exam, no erythema and no edema Mouth: Yes tongue normal, Yes moist mucous membranes, No drooling and Yes malodorous breath Teeth and gingiva: gingiva abnormal edematous, with purulent discharge and tender Eyes: General: appearance normal, both eyes and all related structures Neck: Neck: normal visual inspection, full ROM and no meningeal signs Lymphatic: no lymphadenopathy noted and no lymphedema noted Chest: Chest palpation & inspection: normal inspection of the chest Resp: Effort & Inspection: normal respiratory effort and able to speak in complete sentences Cardio: Jugular venous distension: no JVD Rate: regular rate Back/Spine/Pelvis: Cervical Spine: cervical ROM normal Skin: General skin exam: normal color, no rashes or lesions noted and turgor normal Neuro: General: patient oriented x3, gait normal, moves all extremities and no meningeal signs Speech: normal speech Gait exam (Neuro): Normal gait present Extrem: General: normal to inspection, full ROM and capillary refill normal Psych: Appearance: grossly normal and well kempt Course Course Emergency Course: Some parts of this dictation were generated by voice recognition software and may contain typographical and/or grammatical inaccuracies. Level of Care: Express Care Visit Vital Signs Vital signs: Vital Signs Temperature 36.3 C L 07/24/24 18:14 Pulse Rate 97 07/24/24 18:14 Respiratory Rate 16 07/24/24 18:14 Blood Pressure 132/86 07/24/24 18:14 Pulse Oximetry 100 07/24/24 18:14 Oxygen Delivery Room Air 07/24/24 18:14 Temperature 36.3 C L 07/24/24 18:14 Pulse Rate 97 07/24/24 18:14 Respiratory Rate 16 07/24/24 18:14 Blood Pressure 132/86 07/24/24 18:14 Pulse Oximetry 100 07/24/24 18:14 Oxygen Delivery Room Air 07/24/24 18:14 reviewed MDM - Dental/Oral MDM Narrative Medical decision making narrative: 38-year-old female to Express Care with complaint of lower left posterior gingival pain. Patient states that she had to molars old on Sunday. Patient reports increasing redness, swelling and pain in the area. Denies throat swelling, difficulty swallowing, fever. Patient able to tolerate fluids by mouth. Patient sitting uncomfortably in exam room. Respirations even and nonlabored. Patient in no acute distress. on exam, lower her left posterior gingival erythema, edema with purulent fluid from sutures. Consistent with gingival/dental infection. Patient is sitting uncomfortably in exam room nontoxic in appearance. Patient appropriate for outpatient treatment and follow-up. Discharge instructions reviewed with patient, as well as provided in writing per nursing staff. The instructions also include specific and strict return/GO TO THE ER as well as f/u information. All questions have been answered, and the patient deny any further questions with discharge and discharge plan. Some parts of this dictation were generated by voice recognition software and may contain typographical and/or grammatical inaccuracies. Differential Diagnosis Differential diagnosis: Likely gingival abscess, dental caries, toothache, den juan abscess, fracture of tooth and aphthous ulcer Discharge Plan Discharge Clinical Impression: Dental infection Patient Disposition: Home, Self-Care Condition: Stable Instructions: Dental Abscess (ED) Additional Instructions: Finish the entire course of antibiotics & use the mouthwash. After every time y ou eat be sure to use salt water gargles. Apply ice to face to help with pain. Dental problems can lead to other problems, so this is important to follow up with a dental provider. Follow up with a Primary Care Provider (PCP) about medical needs. A PCP can help keep you healthy by preventive medicine and screening. Return to Urgent care or go to the ER for New or worsening symptoms. Prescriptions: New clindamycin HCl 150 mg capsule 450 mg PO Q6H 10 Days Qty: 120 0RF No Action aripiprazole 5 mg tablet 20 mg PO DAILY Premarin 0.625 mg Tablet 0.625 mg PO DAILY cholecalciferol (vitamin D3) 1,250 mcg (50,000 unit) capsule 1,250 mcg PO WEEKLY escitalopram oxalate 10 mg tablet 10 mg PO DAILY amitriptyline 50 mg tablet 75 mg PO QHS albuterol sulfate 90 mcg/actuation HFA aerosol inhaler 2 inh INHALATION PRN PRN (Reason: Shortness Of Breath) mirabegron [Myrbetriq] 25 mg tablet extended release 24 hr 25 mg PO DAILY albuterol sulfate 2.5 mg /3 mL (0.083 %) solution for nebulization 2.5 mg inhalation Q4-6H PRN (Reason: shortness of breath or wheezing) Qty: 90 0RF escitalopram oxalate 20 mg tablet 20 mg PO DAILY escitalopram oxalate 5 mg tablet 5 mg PO DAILY Rx Instructions: FOR 2 WEEKS Follow-up/Referrals: Gabi,Renetta Sylvester, [facility] [Primary Care Provider] - Stand Alone Forms: Work/School Release IP
== END 2024-07-24 18:53 | disposition home or self-care (01) ==
PROVIDERS: Emergency Provider Nurse Practitioner Family
DX: K04.7 Periapical abscess without sinus (principal); Z87.891 Personal history of nicotine dependence; F12.90 Cannabis use, unspecified, uncomplicated; F32.A Depression, unspecified
CPT/HCPCS: 99213; G0463

== ENCOUNTER 2025-01-13 09:29 | Emergency (ER) | payer OTHER, SELFPAY ==
--- NOTE | ~2025-01-13 | XR_ITS ---
EXAMINATION: XR foot RT min 3V DATE: 01/13/2025 10:05 INDICATION: Heel pain TECHNIQUE: Dorsoplantar, two oblique and lateral views of the right foot were obtained. COMPARISON: None. FINDINGS: Alignment is normal. No fracture. Mild osteoarthritis at the second and third tarsal metatarsal joint s and few of the interphalangeal joints. Calcaneus appears unremarkable with no enthesophytes, and st ress reaction or erosions. Soft tissues are unremarkable. IMPRESSION: 1. 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 Reviewed, dictated and finalized at location A.
[2025-01-13 09:36] VITALS: BP 129/65; PULSE 89; RESP 20; TEMP 36.8; O2SAT 97
--- NOTE | 2025-01-13 09:48 | ED.LOWEXIN ---
HPI - Extremity Injury (Lower) General Chief Complaint: Extremity Injury, Lower Stated Complaint: right heel and ankle pain Time Seen by Provider: 01/13/25 09:48 Source: patient, RN notes reviewed and old records reviewed Mode of arrival: ambulatory Limitations: no limitations History of Present Illness HPI Narrative: 39 year old female who presents to [facility] with complaints of right heel pain for one week duration which radiates to the back of her right heel and to ankle with no reported known injury. Patient reports that she has been taking Tylenol and Ibuprofen for her discomfort. Patient reports that pain is aggravated with ambulation and weight bearing, denies any tingling or numbness to her right foot with strong right pedal pulse present. MD complaint: foot injury (right heel) Onset (ago): week(s) (1) Severity scale (1-10): 5 Exacerbating factors: weight bearing Treatments prior to arrival: other (Tylenol and Ibuprofen) Related Data Home Medications ?Medication ?Instructions ?Recorded ?Confirmed ?Last Taken ?Type conjugated estrogens 0.625 mg 0.625 mg PO DAILY 05/19/20 07/24/24 Unknown History tablet (Premarin) amitriptyline 50 mg tablet 75 mg PO QHS 10/09/23 07/24/24 Unknown History cholecalciferol (vitamin D3) 1,250 1,250 mcg PO WEEKLY 10/09/23 07/24/24 Unknown History mcg (50,000 unit) capsule mirabegron 25 mg tablet,extended 25 mg PO DAILY 06/27/24 07/24/24 Unknown History release 24 hr (Myrbetriq) amitriptyline 75 mg tablet mg 01/13/25 Unknown History aripiprazole 30 mg tablet mg 01/13/25 Unknown History lamotrigine 100 mg tablet mg 01/13/25 Unknown History lorazepam 1 mg tablet mg 01/13/25 Unknown History mirabegron 50 mg tablet,extended mg PO 01/13/25 Unknown History release 24 hr (Myrbetriq) ubrogepant 100 mg tablet (Ubrelvy) mg 01/13/25 Unknown History Allergies Allergy/AdvReac Type Severity Reaction Status Date / Time amoxicillin Allergy Intermediate Swelling Verified 01/13/25 09:50 Review of Systems Review of Systems: CONSTITUTIONAL: Denies fever, chills, or sweats. EYES: Denies visual changes, redness, or discharge. ENT: Denies rhinorrhea, congestion, sore throat, or otalgia. CARDIOVASCULAR: Denies chest pain, palpitations, or edema. RESPIRATORY: Denies cough or dyspnea. GASTROINTESTINAL: Denies abdominal pain, nausea, vomiting, or diarrhea. GENITOURINARY: Denies dysuria or hematuria. SKIN: Denies rash or itching. MUSCULOSKELETAL: Denies back pain, reports right heel pain which radiates at times to back of heel and to ankle, or myalgia. NEUROLOGIC: Denies headache, numbness, or weakness. PSYCHIATRIC: Reports history of anxiety or depression. All systems reviewed & are unremarkable except as noted in HPI and below PMFSH Past Medical History Medical History Depression Bipolar disorder IBS (irritable bowel syndrome) Surgical History Surgical History History of bladder surgery H/O: hysterectomy History of section, low vertical Hx of appendectomy Family History Family History Mother Cervical cancer Grandparent Heart disease Social History Social History Smoking status: Former smoker Additional smoking assessment comments: Quit 6 months ago Alcohol intake: never Substance use: current Substance use type: marijuana Lack of Transportation: No Lack of Food: Never True Current Housing: I Have Housing Concerned About Future Housing: No Difficulty Paying Gas/Electric Bills: No Difficulty Paying for Meds: No Currently Unemployed: No Education: High School Diploma/GED Difficulty w/ Childcare or Family Care: No Living arrangements: with family Occupation/Education: occupation Gender identity (if verbalized by the patient): Female Sexual Orientation (if Verbalized by the Patient): Straight or Heterosexual Comments At time of signature, agree with nursing past medical, surgical, social and family history. There is no relevant family history pertinent to the presenting complaint Exam Narrative: GENERAL: Well-appearing, well-nourished, and in no acute distress. HEAD: Normocephalic, atraumatic. EYES: PERRLA and EOMI. ENT: Nares clear, no rhinorrhea or epistaxis. Mucous membranes moist. NECK: Supple.no lymphadenopathy CHEST: Clear to auscultation. No respiratory distress.SAO2 97% on room air HEART: Regular rate and rhythm. No murmur heard. Normal peripheral pulses. ABDOMEN: Soft, nontender, nondistended, normal active bowel sounds. EXTREMITIES: Normal range of motion. No edema.Pain to the bottom of her heel which she reports radiates up the back of heel and to her ankle at times for one week duration, strong right pedal pulse, denies any tingling or numbness full mobility of foot present. SKIN: Warm, dry, no rash. NEURO: No focal deficits. Alert and oriented x3. Course Course Emergency Course: Patient is aware of diagnosis, understands and agrees to treatment plan.? Anticipatory guidance given.? Patient agrees to follow-up as directed and is aware of reasons to seek care at the emergency department. Portions of this record may have been created with voice recognition software Level of Care: Express Care Visit Vital Signs Vital signs: Vital Signs Temperature 36.8 C 01/13/25 09:36 Pulse Rate 89 01/13/25 09:36 Respiratory Rate 20 01/13/25 09:36 Blood Pressure 129/65 01/13/25 09:36 Pulse Oximetry 97 01/13/25 09:36 Oxygen Delivery Room Air 01/13/25 09:36 Temperature 36.8 C 01/13/25 09:36 Pulse Rate 89 01/13/25 09:36 Respiratory Rate 20 01/13/25 09:36 Blood Pressure 129/65 01/13/25 09:36 Pulse Oximetry 97 01/13/25 09:36 Oxygen Delivery Room Air 01/13/25 09:36 Reviewed MDM - Extremity Injury (Lower) Differential Diagnosis Differential diagnosis: Likely other (right heel pain, plantar fasciitis, heel strain, bone spur heel, osteoarthritis) Medical Records Attestation: I reviewed the patient's medical records. Imaging Data Attestation: I personally reviewed and interpreted this imaging study as follows: My impression: mild polyarticular osteoarthritis in the right fore and midfoot, no heel spur noted or any stress reaction or erosions Radiologist's impression: [facility] [address] [place] [address] XRay Report Signed Patient: Lisa Alvarado : 1985 MR#: [id number] Age: 39 Acct:[id number] Loc: EXPBE ADM Date: 01/13/25Attending Dr: Ordering Physician: Jessica Calix APRN Date of Service: 01/13/25 Procedure(s): XR foot RT min 3V Accession Number(s): [id number] cc: Jessica Calix APRN; Gabi, Renetta Sylvester APRN~ EXAMINATION: XR foot RT min 3V DATE: 01/13/2025 10:05 INDICATION: Heel pain TECHNIQUE: Dorsoplantar, two oblique and lateral views of the right foot were obtained. COMPARISON: None. FINDINGS: Alignment is normal. No fracture. Mild osteoarthritis at the second and third tarsal metatarsal joints and few of the interphalangeal joints. Calcaneus appears unremarkable with no enthesophytes, and stress reaction or erosions. Soft tissues are unremarkable. IMPRESSION: 1. 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 Reviewed, dictated and finalized at location A. Please be advised this is a medical document. It is intended for ceuq-uh-phic communication. It is written in medical language and may contain unfamiliar abbreviations or verbiage. Medical documents are intended to carry relevant information, facts as evident, and the clinical opinion of the practitioner at the time of the encounter. This report may have been done utilizing a voice recognition system. Attempts have been made to correct errors. However, there may be uncorrected grammatical, spelling, and recognition errors present. The file time of this note does not necessarily represent the time of service. Dictated By: Chico Sibley MD 01/13/25 1030 Signed By: <Electronically signed by Chico Sibley MD in OV> Critical Care Time Critical Care Time Critical Care Time: No Discharge Plan Discharge Clinical Impression: Plantar fasciitis of right foot Patient Disposition: Home Condition: Stable Instructions: Plantar Fasciitis (ED), Plantar Fasciitis Exercises (ED) Additional Instructions: Elastic wrap or orthopedic splint as directed for comfort for the next 5-7 days Crutches as directed if needed Tylenol for lesser pain Ibuprofen regularly for the next 2-3 days for the inflammation 400 mg 3 times daily for the next 2-3 days with food Prednisone x5 days take with food Follow-up with podiatry continued pain and problems Follow-up with PCP if further problems or concerns Ice to the area 20-30 minutes 4-6 times a day Elevate above heart Exercises as prescribed If your symptoms persist, change or worsen significantly before you can contact your personal physician then please, without delay, go to the emergency department for further evaluation. Follow-up with PCP in 7-10 days or sooner if needed Follow up with PCP soon in regards to your blood pressure which is elevated above threshold for referral. Blood pressure above 120/80 may indicate pre-hypertension. 129/65 Wear supportive shoes with good arch support Patient Language: Azeri Prescriptions: New prednisone 20 mg tablet 40 mg PO DAILY 5 Days Qty: 10 0RF Rx Instructions: take in am with food No Action amitriptyline 75 mg tablet lorazepam 1 mg tablet lamotrigine 100 mg tablet aripiprazole 30 mg tablet mirabegron [Myrbetriq] 50 mg tablet extended release 24 hr PO Ubrelvy 100 mg tablet Premarin 0.625 mg Tablet 0.625 mg PO DAILY cholecalciferol (vitamin D3) 1,250 mcg (50,000 unit) capsule 1,250 mcg PO WEEKLY amitriptyline 50 mg tablet 75 mg PO QHS mirabegron [Myrbetriq] 25 mg tablet extended release 24 hr 25 mg PO DAILY Follow-up/Referrals: Gabi,Renetta Sylvester, MANAGER [employer] [Primary Care Provider] - Time of Disposition: 11:07 Quality Rudy Coma Scale Eyes: Open Verbal: Oriented and Alert Motor: Follows Commands Rudy Coma Total Score: 15
--- OUTSIDE RECORDS SUMMARY | 2025-01-13 10:02 | XMS_ITS | Data Portability ---
Author Organization [place] [facility] [employer], Main Office Address [address] [place] [address] Care Team Providers Care Cabinet Mounter Name Role Phone NATHANAEL BRENNAN Primary Care Provider NATHANAEL BRENNAN Referring Provider Assessment No assessment recorded. Plan of Treatment Reminders Order Date Submit Date Provider Last Modified By Organization Details Last Modified Time Details Appointments Follow Up 15 2024 01:00P Nila Bhatia PMHNAngeles Not available Not available Not available Lab TSH, serum or plasma 2024 025 [facility], [address] [place], [address], 12/26/2024 20:42:27 T4, free, serum 2024 025 [facility], [address] [place], [address], 12/26/2024 20:42:27 T3, free, serum or plasma 2024 025 [facility], [address] [place], [address], 12/26/2024 20:42:27 TSH + free T4, serum 2023 024 [facility], [address] [place], [address], 07/01/2024 23:19:10 T3, free, serum or plasma 2023 024 [place] [address] [facility], [address] [place], [address], 07/08/2024 08:08:20 iron panel, serum or plasma 2023 024 [facility], [address] [place], [address], 07/01/2024 23:19:10 magnesium , serum or plasma [address] [facility], [address] [place], [address], 07/08/2024 08:08:20 CBC w/ auto diff 2023 024 [facility], [address] [place], [address], 07/01/2024 23:19:10 culture, urine + sensitivi ty [address] (Lab), [address] [place], [address], 05/22/2024 08:11:52 culture, urine + sensitivi ty 2023 024 [facility], [address] [place], [address], 04/28/2024 13:57:04 Referral urologist referral - Please call patient to schedule an appointme nt. Thank you 2024 025 [facility], [address] [facility], [address], [place], [address], 01/06/2025 20:00:50 pulmonolo gist referral - Please call patient to schedule an appointme nt. Thank inge. 2023 024 [email or web address] Beto Corado MD, [address] [place], [address], 08/11/2024 09:05:10 cardiolog ist referral - EKG reads incomplet e right bundle branch block, possible atrial enlargeme nt. Please call patient to schedule an appointme nt. Thank you. 2023 024 [email or web address] [facility] Referral Fax Line, [address], [address], [place], [address], 06/12/2024 08:42:27 Procedures None recorded. Surgeries None recorded. Imaging CT, chest, w/o contrast - Denied [address] (Imaging), [address] [facility] [address], [place], [address], 07/21/2024 09:09:26 XR, chest, 2 view [address] [facility] (Imaging), [address] [facility] [address], [place], [address], 07/11/2024 10:46:18 electroca rdiogram 2023 024 [facility], [facility] , [place], [address], 05/15/2024 13:08:02 US, echocardi ogram [email or web address] [facility], [facility] , [place], [address], 05/29/2024 09:03:08 Medication Orders Myrbetriq 50 mg tablet,ex tended release 2024 025 [place] [facility] #05426, [address], [place], [place], [id number], 12/26/2024 14:50:10 acyclovir 400 mg tablet 2024 025 [place] [facility]23438, [address], [place], [place], [id number], 12/26/2024 14:50:13 Ubrelvy 100 mg tablet 2024 025 [facility] #68855, [address] , [place], [place], [id number], 12/26/2024 14:50:12 Premarin 0.625 mg tablet 2024 025 [facility] #52039, [address], [place], [place], [id number], 12/26/2024 14:50:11 Medrol (Surendra) 4 mg tablets in a dose pack [address] Store #81447, [address] , [place], [place], [id number], 12/26/2024 14:25:17 Airsupra 90 mcg-80 mcg/actua tion HFA aerosol inhaler 2023 024 [facility] #28560, [address] [place], [place], [id number], 07/01/2024 14:39:12 cetirizin e 10 mg tablet [address], [address] [place], [place], [id number], 12/26/2024 14:25:37 azithromy sujey 250 mg tablet [address] [facility] #30736, [address] [place], [place], [id number], 12/26/2024 14:25:50 rizatript an 10 mg tablet 2023 024 [facility] #34847, [address] , [place], [place], [id number], 07/01/2024 14:40:43 Patient TargetsNo targets recorded. Patient Instructions Encounter Date Encounter Id Patient Instructions Last Modified By Organization Details Last Modified Time 04/25/2024 [id number] plan 1. 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 Please call patient to schedule an appointment. Thank you. Referring Physician: Nathanael Brennan [facility], Encounter Date: 05/15/2024 Live Out Nanny Referral for C ough Please call patient to schedule an appointment. Thank inge. Referring Physician: Nathanael Brennan [facility], Encounter Date: 07/11/2024 Urologist Referral for Overf low incontinence of urine Please call patient to schedule an appointment. Thank you Referring Physician: Nathanael Brennan [facility], Encounter Date: 12/26/2024 Results Created Date Observation Date Name Description Value Unit Range Abnormal Flag Note LastModifiedBy Organization Detail LastModifiedTime 04/25/2004/25/2024 urina lysis , dipst ick Color Yellow Not Available [facility] [address], [place], [address], 04/25/2024 16:07:24 04/25/20 24 04/25/2024 urina lysis , dipst ick Appearance Clear Not Available [facility] [address], [place], [address], 04/25/2024 16:07:24 04/25/20 24 04/25/2024 urina lysis , dipst ick Glucose (reference range: negative mg/dl) Negati ve Not Available [facility] [address], [place], [address], 04/25/2024 16:07:24 04/25/20 24 04/25/2024 urina lysis , dipst ick Bilirubin (reference range: negative mg/dl) Negati ve Not Available [facility] [address], [place], [address], 04/25/2024 16:07:24 04/25/20 24 04/25/2024 urina lysis , dipst ick Ketone (reference range: negative mg/dl) Negati ve Not Available [facility] [address] [place] [address] [address], [place], [address], 04/25/2024 16:07:24 04/25/20 24 04/25/2024 urina lysis , dipst ick Specific Union (reference range: 1.005-1.030) 1.030 Not Available s [facility] [address] [place] [address] [address], [place], [address], 04/25/2024 16:07:24 04/25/20 24 04/25/2024 urina lysis , dipst ick Blood (reference range: negative Simón/ l) Non-He molyze d: Trace Not Available [facility] [address] [place] [address] [address], [place], [address], 04/25/2024 16:07:24 04/25/20 24 04/25/2024 urina lysis , dipst ick pH (reference range: 5-7) 6.5 Not Available [facility] [address] [place] [address] [address], [place], [address], 04/25/2024 16:07:24 04/25/20 24 04/25/2024 urina lysis , dipst ick Protein (reference range: negative mg/dl) Negati ve Not Available [facility] [address] [place] [address] [address], [place], [address], 04/25/2024 16:07:24 04/25/20 24 04/25/2024 urina lysis , dipst ick Urobilinogen (reference range: 0.2-1 mg/dl) 0.2 Not Available [facility] [place] [address] [facility] [address], [place], [address], 04/25/2024 16:07:24 04/25/20 24 04/25/2024 urina lysis , dipst ick Nitrite (reference rage: negative mg/dl) positi ve Not Available [facility] [address], [place], [address], 04/25/2024 16:07:24 04/25/20 24 04/25/2024 urina lysis , dipst ick Leukocytes (reference range: negative aliyah/ l) Small Not Available [facility] [address], [place], [address], 04/25/2024 16:07:24 05/13/20 24 05/13/2024 XR, chest , 2 view No observ ation record ed. [email or web address], [place], [address], 05/23/2024 16:48:50 05/15/20 24 05/15/2024 elect rocar diogr am No observ ation record ed. [facility] (Cardiology) [address] [place], [address], 05/15/2024 14:04:39 05/15/20 24 05/15/2024 elect rocar diogr am No observ ation record ed. [facility] (Cardiology) [address] [place], [address], 05/15/2024 14:04:39 06/20/20 24 06/20/2024 rhyth m strip , EKG* No observ ation record ed. [facility] [address], [place], [address], 06/22/2024 15:10:37 07/01/20 24 07/01/2024 US, echoc ardio gram No observ ation record ed. [facility] [address], [place], [address], 07/01/2024 11:21:53 07/11/20 24 07/11/2024 XR, chest , 2 view No observ ation record ed. [facility] [address], [place], [address], 07/11/2024 11:17:57 Result Notes None recorded. Problems Name Problem SNOMED Code Status Onset Date Resolution Date Notes Provider Name and Address Organization Details Recorded Time Migraine 27701172 Active 2022 SANDRA Benoit [address], [address], [place], [address] , [employer] 3 09:31:47 Cigarette smoker 04937696 Active 2022 SANDRA Benoit [address], [address], [place], [address] , [employer] 3 14:13:44 Daytime hypersomni a 3440387679433 2 Active 2022 SANDRA Benoit [address], [address], [place], [address] , [employer] 3 14:17:53 Increased frequency of urination 646741019 Active 2022 SANDRA Benoit [address], [address], [place], [address] , [facility] - [employer] 3 14:22:48 Backache 249719054 Active 2022 SANDRA Benoit [address], [address], [place], [address] , [employer] [place] [employer] 3 14:23:52 COVID-19 934443207 Active 2022 KILO MaldonadoP-C [address], [address], [place], [address] , [facility] - [facility] [employer] 3 10:30:52 Chronic bronchitis 46289075 Active 2022 CHETAN Berkowitz [address], [address], [place], [address] , [facility] [employer] [facility] [employer] 3 09:11:56 Vitamin D deficiency 34773074 Active 2022 CHETAN Berkowitz [address], [address], [place], [address] , [employer] [facility] [employer] 3 09:20:59 Dizziness 250612480 Active 2022 CHETAN Berkowitz [address], [address], [place], [address] , [employer] [facility] [employer] 3 09:22:57 Cobalamin deficiency 359904568 Active 2022 CHETAN Berkowitz [address], [address], [place], [address] , [employer] [facility] [employer] 3 09:26:16 Pain in right hand 9482688072307 09 Active 2023 KILO MaldonadoP-C [address], [address], [place], [address] , [facility] [employer] [facility] [employer] 4 08:54:45 Insomnia 705194382 Active 2023 KILO MaldonadoP-C [address], [address], [place], [address] , [employer] [facility] [employer] 4 09:07:01 Upper respirator y infection 29124622 Active 2023 Kaushik Menchaca [employer] [address], [address], [place], [address] , [employer] [facility] [employer] [employer] 4 08:17:11 Acute sinusitis 61838252 Active 2023 BELINDA Maldonado [address], [address] [facility], [place], [address] , [facility] 4 08:17:18 Type 1 diabetes mellitus without complicati on 161097811 Active 2023 SANDRA Chinchilla [address], [address], [place], [address] , [facility] [employer] 4 15:40:25 Overflow incontinen ce of urine 414599000 Active 2023 SANDRA Chinchilla [address], [address], [place], [address] , [facility] 4 15:40:37 Migraine without aura 76322058 Active 2023 SANDRA Chinchilla [address], [address], [place], [address] , [facility] 4 15:43:33 Blephariti s of left eyelid 7544800278651 02 Active 2023 SANDRA Chinchilla [address], [address], [place], [address] , [facility] 4 15:55:37 Xanthoma of upper eyelid 779897992 Active 2023 SANDRA Chinchilla [address], [address], [place], [address] , [facility] [employer] 4 16:00:50 Urinary incontinen ce 103691973 Active 2023 LUKE Lam, [facility] 4 16:07:26 Overactive urinary bladder 396849265 Active 2023 Mark John MD [address], [address], [place], [address] , [facility] 4 16:23:43 Recurrent urinary tract infection 593362776 Active 2023 Mark John MD [address], [address], [place], [address] , [facility] [employer] 4 16:23:52 Urethral stricture 77134270 Active 2023 Mark John MD [address], [address], [place], [address] , [place] [facility] [employer] 4 16:25:05 Acute urinary tract infection 142155249 Active 2023 Mark John MD [address], [address], [place], [address] , [facility] [employer] 4 20:15:52 Diverticul itis of colon 293500144 Active 2023 Mark John MD [address], [address], [place], [address] , [facility] - [facility] [employer] 4 20:16:21 Chest pain 20801129 Active 2023 SANDRA Chinchilla [address], [address], [place], [address] , [facility] [employer] 4 09:37:58 Wheezing symptom 244120150 Active 2023 SANDRA Chinchilla [address], [address], [place], [address] , [facility] [employer] 4 14:34:17 Asthma 851931284 Active 2023 SANDRA Chinchilla [address], [address], [place], [address] , [facility] [employer] 4 14:34:32 Cough 17979524 Active 2023 SANDRA Chinchilla [address], [address], [place], [address] , [place] [facility] [employer] 4 14:35:13 Lightheade dness 501840167 Active 2023 SANDRA Chinchilla [address], [address], [place], [address] , [place] [facility] [place] [facility] 4 14:36:34 Herpes labialis 4447891 Active 2024 SANDRA Chinchilla [address], [address], [place], [address] , [place] [facility] [place] [facility] [employer] 5 14:44:48 Migraine with aura 4244842 Active 2024 SANDRA Chinchilla [address], [address], [place], [address] , [place] [facility] [place] [facility] [employer] 5 14:47:14 Hyperthyro idism 02114603 Active 2024 SANDRA Chinchilla [address], [address], [place], [address] , [place] [facility] [place] [facility] [employer] 5 09:38:54 Diastasis of muscle 574647384 Active Not Available [employer] 3 04:34:51 Hernia of abdominal wall Active Not Available [employer] 3 04:34:51 Constipati on 88946812 Active Not Available [employer] 3 04:34:51 Mixed anxiety and depressive disorder 845135776 Active Not Available [employer] 3 04:34:51 Oral herpes simplex infection 624360374 Active Not Available [employer] 3 04:34:51 Genital herpes simplex 28582355 Active Not Available [employer] 3 04:34:51 Postsurgic al menopause 147789757 Active Not Available [employer] 3 04:34:51 Ingrowing toenail 070428106 Active Not Available [employer] 3 04:34:51 Contact dermatitis 08459888 Active Not Available [employer] 3 04:34:51 Environmen juan allergy 543005405 Active Not Available [employer] 3 04:34:51 Incontinen ce 11763840 Active Not Available [employer] 3 04:34:51 Decreased body mass index 9201016 Active Not Available [facility] 3 04:34:51 Urinary tract infectious disease 54344147 Active Not Available [facility] 3 04:34:51 Dyspareuni a 98969806 Active Not Available [facility] 3 04:34:51 Candidiasi s of vagina 99092438 Active Not Available [facility] 04:34:51 Smoker 26870193 Active Not Available [facility] 3 04:34:51 Problem Notes None recorded. Procedures Surgical History Date Name Laterality Status Provider Name and Address Organization Details Recorded Time Appendectomy completed Not Available [facility] 11/29/2022 04:31:04 section completed Not Available [facility] 11/29/2022 04:31:04 reconstruction of female urinary bladder neck completed Not Available [facility] 11/29/2022 04:31:04 cystoscopy completed Not Available [facility] 11/29/2022 04:31:04 Thyroid Surgery completed Not Available [facility] 11/29/2022 04:31:04 Breast Surgery completed Not Available [facility] 11/29/2022 04:31:04 Hysterectomy completed Not Available [facility] 11/29/2022 04:31:04 Colposcopy completed Not Available [facility] 11/29/2022 04:31:04 Breast Surgery completed Not Available [facility] 11/29/2022 04:31:04 Imaging Results Imaging Date Name Status LastModified by Organization Details LastModified Time 05/13/2024 XR, chest, 2 view completed [address] [facility] [address], [place], [address], 05/23/2024 16:48:50 05/15/2024 [facility]ogram [facility] (Cardiology) [address] [facility] [place], [address], 05/15/2024 14:04:39 05/15/2024 [facility] (Cardiology) [address] [place], [address], 05/15/2024 14:04:39 06/20/2024 rhythm strip, EKG* completed [facility] is [facility] [address], [place], [address], 06/22/2024 15:10:37 07/01/2024 US, echocardiogram completed [facility] [address], [place], [address], 07/01/2024 11:21:53 07/11/2024 XR, chest, 2 view completed [facility] [address], [place], [address], 07/11/2024 11:17:57 Procedure Notes None recorded. Medical Equipment None Reported. Allergies Allergen ID Allergen Name Allergen Category Reaction Reaction Severity Criticality Documentation Date Start Date Code Code System Note Provider Name and Address Organization Details Recorded Time 6582 amoxicill in medicatio n hives Not available Not available 11/29/2022 723 RxNorm Not Available [employer] 3 04:39:56 78709 Flagyl medicatio n vomiting Not available low 05/15/202489241 6 RxNorm Cortney Piña RN [facility], [place] - [facility] [employer] 4 09:25:13 Medications Name Sig Start Date Stop Date Status Note LastModified by Organization Details LastModified Time fluconazo le 100 mg tablet TK 1 T PO D FOR 5 DAYS 07/09 completed Not Available Not Available Not Available bupropion HCl SR 150 mg tablet,12 hr sustained -release Take one tablet twice daily active Not Available Not Available No t Available doxycycli ne hyclate 100 mg capsule 02/21 completed Not Available Not Available Not Available nicotine 14 mg/24 hr daily transderm al patch APPLY 1 PATCH TO SKIN QD DIRECTED 02/15 completed Not Available Not Available Not Available clindamyc in HCl 300 mg capsule TK 1 C PO TID FOR 7 DAYS active Not Available Not Available No t Available albuterol sulfate 2.5 mg/3 mL (0.083 %) solution for nebulizat ion INHALE 3 ML EVERY 4 TO 6 HOURS NEEDED FOR SHORTNES S OF BREATH OR WHEEZING active Not Available Not Available No t Available trazodone 50 mg tablet Take 1 tablet every day by oral route for 30 days. 03/31 completed Not Available Not Available Not Available cetirizin e 10 mg tablet Take 1 tablet every day by oral route as directed for 30 days. 12/26 completed Not Available Not Available Not Available azithromy sujey 250 mg tablet TAKE 2 TABLETS (500 MG) BY ORAL ROUTE ONCE DAILY FOR 1 DAY THEN 1 TABLET (250 MG) BY ORAL ROUTE ONCE DAILY FOR 4 DAYS 12/26 completed Not Available Not Available Not Available amitripty line 75 mg tablet TAKE 1 TABLET BY MOUTH EVERY DAY AT BEDTIME active Not Available Not Available No t Available benzonata te 200 mg capsule TK 1 C PO TID 02/15 completed Not Available Not Available Not Available hydrocodo ne 5 mg-acetam inophen 325 mg tablet TAKE 1 TABLET BY MOUTH EVERY 6 HOURS NEEDED FOR MODERATE TO SEVERE PAIN 12/26 completed Not Available Not Available Not Available ondansetr on HCl 8 mg tablet Take 1 tablet every 8 hours by oral route as needed. active Not Available Not Available No t Available sumatript an 25 mg tablet TAKE 1 TABLET BY MOUTH AT ONSET OF SYMPTOMS . MAY REPEAT IN 2 HOURS FOR 1 DOSE NEEDED. NOT TO EXCEED 8 TABLETS IN 24 HOURS 05/15 completed Not Available Not Available Not Available metronida zole 0.75 % (37.5 mg/5 gram) vaginal gel I 1 APL VAGINALL Y QD HS 07/09 completed Not Available Not Available Not Available prednison e 20 mg tablet TAKE 2 TABLETS BY MOUTH DAILY FOR 5 DAYS 07/11 completed Not Available Not Available Not Available rizatript an 10 mg tablet Take 1 tab at migraine onset, repeat after 2 hrs if needed, do not exceed 3 tabs in 24 hrs 07/01 completed Not Available Not Available Not Available clindamyc in HCl 150 mg capsule TAKE 3 CAPSULES BY MOUTH EVERY 6 HOURS FOR 10 DAYS 12/26 completed Not Available Not Available Not Available cyanocoba cora (vit B-12) 1,000 mcg tablet Take 1 tablet by oral route. 03/31 completed Not Available Not Available Not Available topiramat e 25 mg tablet TAKE 1 TABLET BY MOUTH EVERY DAY active Not Available Not Available No t Available metronida zole 500 mg tablet TAKE 1 TABLET BY MOUTH EVERY 8 HOURS 05/15 completed Not Available Not Available Not Available acetamino phen 300 mg-codein e 30 mg tablet 02/14 completed Not Available Not Available Not Available fexofenad ine 180 mg tablet TK 1 T PO QD 02/15 completed Not Available Not Available Not Available ciproflox acin 250 mg tablet TK 1 T PO Q 12 H FOR 10 DAYS active Not Available Not Available No t Available acyclovir 400 mg tablet TAKE 1 TABLET BY MOUTH TWICE DAILY active Not Available Not Available No t Available valacyclo vir 500 mg tablet TAKE 1 TABLET BY MOUTH EVERY DAY FOR 30 DAYS 07/09 completed Not Available Not Available Not Available ciproflox acin 500 mg tablet TAKE 1 TABLET BY MOUTH TWICE DAILY FOR 5 DAYS 05/15 completed Not Available Not Available Not Available sulfameth oxazole 800 mg-trimet hoprim 160 mg tablet TK 1 T PO Q 12 H FOR 7 DAYS 02/15 completed Not Available Not Available Not Available amitripty line 50 mg tablet TAKE 1 TABLET BY MOUTH EVERY DAY AT BEDTIME 03/31 completed Not Available Not Available Not Available triamcino lone acetonide 0.1 % topical cream NELLY THIN LAYER EXT AA BID 08/07 completed Not Available Not Available Not Available ketorolac 30 mg/mL (1 mL) injection solution 1 ml IM x 1 03/31 completed Not Available Not Available Not Available ondansetr on 8 mg disintegr ating tablet DISSOLVE 1 TABLET ON THE TONGUE TWICE DAILY NEEDED 12/26 completed Not Available Not Available Not Available lamotrigi ne 25 mg tablet TAKE 2 TABLETS BY MOUTH EVERY DAY 12/26 completed Not Available Not Available Not Available ofloxacin 0.3 % ear drops 02/15 completed Not Available Not Available Not Available amitripty line 25 mg tablet TAKE 1 TABLET BY MOUTH EVERY DAY AT BEDTIME 02/08 completed dose changed Not Available Not Available Not Available lorazepam 0.5 mg tablet TAKE 1 TABLET BY MOUTH THREE TIMES DAILY NEEDED 02/21 completed Not Available Not Available Not Available hydrocort isone 1 % topical cream APPLY A THIN LAYER TO THE AFFECTED AREA(S) BY TOPICAL ROUTE 2 TIMES PER DAY 09/15 completed Not Available Not Available Not Available doxycycli ne monohydra te 100 mg capsule 02/15 completed Not Available Not Available Not Available mirtazapi ne 30 mg tablet TAKE 1 TABLET BY MOUTH EVERY DAY AT BEDTIME 02/01 completed Not Available Not Available Not Available ropinirol e 0.5 mg tablet TAKE 1 TABLET BY MOUTH THREE TIMES DAILY active Not Available Not Available No t Available prednison e 50 mg tablet 02/15 completed Not Available Not Available Not Available nicotine 21 mg/24 hr daily transderm al patch APPLY 1 PATCH DIRECTED ON PACKAGE active Not Available Not Available No t Available Senna Laxative 8.6 mg tablet Take 1 tablet twice a day by oral route for 30 days. 03/13 completed Not Available Not Available Not Available diclofena c sodium 75 mg tablet,de layed release TAKE 1 TABLET BY MOUTH TWICE DAILY 03/31 completed Not Available Not Available Not Available monteluka st 10 mg tablet TAKE 1 TABLET BY MOUTH EVERY DAY AT BEDTIME 02/15 completed Not Available Not Available Not Available acyclovir 200 mg capsule 07/09 completed Not Available Not Available Not Available mirtazapi ne 15 mg tablet TAKE 1 TABLET BY MOUTH EVERY DAY AT BEDTIME 02/01 completed Not Available Not Available Not Available lorazepam 1 mg tablet TAKE 1 TABLET BY MOUTH THREE TIMES DAILY NEEDED active Not Available Not Available No t Available ibuprofen 600 mg tablet TAKE 1 TABLET BY MOUTH THREE TIMES DAILY NEEDED active Not Available Not Available No t Available levofloxa sujey 500 mg tablet TK 1 T PO Q 24 H FOR 7 DAYS 08/22 completed Not Available Not Available Not Available methylpre dnisolone 4 mg tablets in a dose pack FOLLOW PACKAGE DIRECTIO NS 12/26 completed Not Available Not Available Not Available albuterol sulfate HFA 90 mcg/actua tion aerosol inhaler INHALE 2 PUFFS BY MOUTH EVERY 4 HOURS NEEDED active Not Available Not Available No t Available oxybutyni n chloride 5 mg tablet TK 1 T PO BID FOR 30 DAYS 02/15 completed Not Available Not Available Not Available ondansetr on 4 mg disintegr ating tablet DISSOLVE 1 T PO Q 8 H PRN 02/15 completed Not Available Not Available Not Available fluticaso ne propionat e 50 mcg/actua tion nasal spray,kelly pension SHAKE LIQUID AND USE 2 SPRAYS IN EACH NOSTRIL DAILY FOR 14 DAYS 08/07 completed Not Available Not Available Not Available amitripty line 100 mg tablet TAKE 1 TABLET BY MOUTH EVERY DAY AT BEDTIME active Not Available Not Available No t Available lamotrigi ne 100 mg tablet TAKE 1 TABLET BY MOUTH EVERY DAY active Not Available Not Available No t Available Sudafed 30 mg tablet TAKE 2 TABLETS BY MOUTH EVERY 4 TO 6 HOURS 03/31 completed Not Available Not Available Not Available loratadin e 10 mg tablet TAKE 1 TABLET BY MOUTH EVERY DAY FOR 30 DAYS active Not Available Not Available No t Available amoxicill in 875 mg-potass ium clavulana te 125 mg tablet TAKE 1 TABLET BY MOUTH EVERY 12 HOURS FOR 7 DAYS 03/31 completed Not Available Not Available Not Available nicotine 7 mg/24 hr daily transderm al patch APPLY ONE PATCH TO THE SKIN ONCE DAILY 02/15 completed Not Available Not Available Not Available azithromy sujey 500 mg tablet 02/15 completed Not Available Not Available Not Available escitalop jef 10 mg tablet TAKE 1 TABLET BY MOUTH EVERY DAY 12/26 completed Not Available Not Available Not Available escitalop jef 20 mg tablet TAKE 1 TABLET BY MOUTH EVERY DAY 07/01 completed Not Available Not Available Not Available aripipraz ole 10 mg tablet TAKE 1 TABLET BY MOUTH EVERY DAY active Not Available Not Available No t Available aripipraz ole 15 mg tablet TAKE 1 TABLET BY MOUTH EVERY DAY active Not Available Not Available No t Available aripipraz ole 20 mg tablet TAKE 1 TABLET BY MOUTH EVERY DAY 12/26 completed Not Available Not Available Not Available aripipraz ole 30 mg tablet TAKE 1 TABLET BY MOUTH EVERY DAY active Not Available Not Available No t Available nicotine 21mg/24hr -14mg/24h r-7mg/24h r daily transderm patches,s equentl Apply 1 patch every day by transder mal route. 07/09 completed Not Available Not Available Not Available Premarin 0.625 mg tablet TAKE 1 TABLET BY MOUTH EVERY DAY DIRECTED 2024 active Not Available Not Available Not Avai lable aripipraz ole 5 mg tablet TAKE 1 TABLET BY MOUTH EVERY DAY 07/01 completed Not Available Not Available Not Available escitalop jef 5 mg tablet TAKE 1 TABLET BY MOUTH EVERY DAY 12/26 completed Not Available Not Available Not Available nitrofura ntoin monohydra te/macroc rystals 100 mg capsule TK 1 C PO BID WC FOR 7 DAYS 07/09 completed Not Available Not Available Not Available solifenac in 10 mg tablet TAKE 1 TABLET BY MOUTH EVERY DAY 08/07 completed Not Available Not Available Not Available Vesicare 5 mg tablet Take 1 tablet every day by oral route. 09/15 completed Not Available Not Available Not Available Chantix Starting Month Surendra 0.5 mg (11)-1 mg (42) tablets in dose pack TAKE 1 TABLET BY MOUTH EVERY DAY DIRECTED 07/09 completed Not Available Not Available Not Available aripipraz ole 2 mg tablet TAKE 1 TABLET BY MOUTH EVERY DAY 02/21 completed Not Available Not Available Not Available Chantix Continuin g Month Surendra 1 mg tablet FOLLOW PACKAGE DIRECTIO NS DIRECTED 08/17 completed Not Available Not Available Not Available cholecalc iferol (vitamin D3) 1,250 mcg (50,000 unit) capsule TAKE 1 CAPSULE BY MOUTH EVERY WEEK 03/31 completed Not Available Not Available Not Available ketorolac 30 mg/mL injection solution Inject 1 mL every day by intraven ous route for 1 day. 02/15 completed Not Available Not Available Not Available mirabegro n ER 25 mg tablet,ex tended release 24 hr TAKE 1 TABLET BY MOUTH EVERY DAY active Not Available Not Available No t Available Myrbetriq 50 mg tablet,ex tended release TAKE 1 TABLET BY MOUTH EVERY DAY DIRECTED active Not Available Not Available No t Available Virtussin AC 10 mg-100 mg/5 mL oral liquid TK 5 ML PO Q 6 H PRF COUGH 03/13 completed Not Available Not Available Not Available Aimovig Autoinjec tor 70 mg/mL subcutane ous auto-inje ctor ADMINIST ER 1 ML UNDER THE SKIN EVERY MONTH DIRECTED active Not Available Not Available No t Available Ubrelvy 100 mg tablet TAKE 1 TABLET BY MOUTH TWICE DAILY NEEDED active Not Available Not Available No t Available Nurtec ODT 75 mg disintegr ating tablet DISSOLVE 1 TABLET ON THE TONGUE EVERY DAY NEEDED 05/15 completed Not Available Not Available Not Available Paxlovid 300 mg (150 mg x 2)-100 mg tablets in a dose pack TAKE 2 NIRMATRE LVIR TABLETS AND 1 RITONAVI R TABLET TOGETHER BY MOUTH TWICE DAILY FOR 5 DAYS 08/07 completed Not Available Not Available Not Available Airsupra 90 mcg-80 mcg/actua tion HFA aerosol inhaler Inhale by inhalati on route for 60 days. active Not Available Not Available No t Available Vitals Date Recorded Body height Heart rate Body temperature Body mass index (BMI) Body weight Oxygen saturation Oxygen saturation in Arterial blood by Pulse oximetry Provider Name and Address Organization Details Last Updated DateTime 4 165.1 cm 119 /min 97 [degF] 27.3 kg/m2 84275.1 5 g 98 % 98 % Nicole Small CMA [facility] [employer] 4 16:06:53 Date Recorded Body height Body mass index (BMI) Body weight Body temperature Heart rate Respiratory rate Oxygen saturation Oxygen saturation in Arterial blood by Pulse oximetry Pain severity - 0-10 verbal numeric rating [Score] - Reported Systolic blood pressure Diastolic blood pressure Provider Name and Address Organization Details Last Updated DateTime 4 165.1 cm 27.6 kg/m2 30471.8 9 g 97.9 [degF] 93 /min 20 /min 98 % 98 % 0 114 mm[Hg] 74 mm[Hg] Cortney Piña RN [facility] 4 09:29:16 Date Recorded Body height Body mass index (BMI) Body weight Body temperature Heart rate Respiratory rate Oxygen saturation Oxygen saturation in Arterial blood by Pulse oximetry Pain severity - 0-10 verbal numeric rating [Score] - Reported Systolic blood pressure Diastolic blood pressure Provider Name and Address Organization Details Last Updated DateTime 4 165.1 cm 27.5 kg/m2 17041.7 4 g 97.3 [degF] 123 /min 20 /min 98 % 98 % 0 122 mm[Hg] 80 mm[Hg] Cortney Piña RN [facility] 4 14:27:55 Date Recorded Body height Body mass index (BMI) Body weight Body temperature Heart rate Respiratory rate Oxygen saturation Oxygen saturation in Arterial blood by Pulse oximetry Pain severity - 0-10 verbal numeric rating [Score] - Reported Systolic blood pressure Diastolic blood pressure Provider Name and Address Organization Details Last Updated DateTime 4 165.1 cm 28.3 kg/m2 21256.0 5 g 97.3 [degF] 117 /min 20 /min 97 % 97 % 0 122 mm[Hg] 82 mm[Hg] Cortney Piña RN [facility] [employer] [facility] 4 11:26:11 Date Recorded Body height Body mass index (BMI) Body weight Body temperature Heart rate Respiratory rate Oxygen saturation Oxygen saturation in Arterial blood by Pulse oximetry Pain severity - 0-10 verbal numeric rating [Score] - Reported Systolic blood pressure Diastolic blood pressure Provider Name and Address Organization Details Last Updated DateTime 5 165.1 cm 28.3 kg/m2 54369.0 5 g 97.6 [degF] 96 /min 20 /min 96 % 96 % 0 110 mm[Hg] 76 mm[Hg] Corntey Piña RN [facility] [employer] [facility] 5 14:29:25 Social History Question Answer Notes LastModified by Organizat ion Details LastModified Time Tobacco Smoking Status Former Smoker 1 year Cortney Piña RN [facility], [facility] [employer] [facility] 03/31/2024 15:24:56 Do You Have An Advance Directive? No Information not available 03/31/2024 What Is Your Level Of Alcohol Consumption? None [id number] Information not available 11/29/2022 Is Blood Transfusion Acceptable In An Emergency? Yes Information not available 03/31/2024 What Is Your Level Of Caffeine Consumption? Heavy [id number] Information not available 11/29/2022 How Much Tobacco Do You Chew? None [id number] Information not available 11/29/2022 What Is Your Code Status? Full Code Information not available 03/31/2024 In The 14 Days Before Symptom Onset, Have You Had Close Contact With A Laboratory-confi rmed COVID-19 While That Case Was Ill? No [email or web address] Information not available 06/13/2023 In The 14 Days Before Symptom Onset, Have You Had Close Contact With A Person Who Is Under Investigation For COVID-19 While That Person Was Ill? No [email or web address] Information not available 06/13/2023 Are You Currently Employed? Yes Information not available 03/31/2024 What Type Of Diet Are You Following? REGULAR [id number] Information not available 11/29/2022 Which Illicit Or Recreational Drugs Have You Used? No Information not available 06/13/2023 Do You Or Have You Ever Used E-cigarettes Or Vape? Current User Of Electronic Cigarettes Information not available 03/31/2024 What Is Your Occupation? [employer] Information not available 03/31/2024 Have There Been Any Changes To Your Family Or Social Situation? No Information not available 03/31/2024 When Did You Quit Smoking? 1-5yearssincelastci daniel Information not available 03/31/2024 Are There Any Guns Present In Your Home? No [email or web address] Information not available 06/13/2023 How Many Years Have You Used Illicit Or Recreational Drugs? 4 Information not available 03/31/2024 Do You Use Insect Repellent Routinely? No Information not available 03/31/2024 Where Do You Live? SingleLevelHouse Information not available 03/31/2024 Do You Have A Medical Power Of Veterans Service Officer? No Information not available 03/31/2024 How Many Children Do You Have? 2 Information not available 03/31/2024 Do You Have Any Pets? Yes Information not available 03/31/2024 What Is Your Relationship Status? Information not available 03/31/2024 Do You Use Your Seat Belt Or Car Seat Routinely? Yes Information not available 03/31/2024 Do You Have Smoke And Carbon Monoxide Detectors In Your Home? Yes Information not available 03/31/2024 At What Age Did You Start Smoking Tobacco? 13 [email or web address] Information not available 06/13/2023 Are You Passively Exposed To Smoke? No Information not available 06/13/2023 Do You Or Have You Ever Used Smokeless Tobacco? Never Used Smokeless Tobacco [id number] Information not available 11/29/2022 Are There Any Smokers In Your House? No Information not available 03/31/2024 How Much Tobacco Do You Smoke? 0.5 PPD [id number] Information not available 11/29/2022 Do You Participate In Social Media? Yes Information not available 03/31/2024 Do You Feel Stressed (tense, Restless, Nervous, Or Anxious, Or Unable To Sleep At Night)? [id number] Information not available 03/31/2024 Do You Use Any Illicit Or Recreational Drugs? Yes MJ Information not available 03/31/2024 Do You Use Sunscreen Routinely? No Information not available 03/31/2024 How Many Years Have You Smoked Tobacco? 20 [email or web address] Information not available 06/13/2023 Have You Recently Traveled Abroad? No Information not available 03/31/2024 Have You Used IV Drugs? No Information not available 03/31/2024 Do You Or Have You Ever Used Any Other Forms Of Tobacco Or Nicotine? Yes Information not available 03/31/2024 How Many Years Have You Used E-cigarettes Or Vape? 1 Information not available 03/31/2024 Sex: Unknown Functional Status Question Answer Note LastModified by Organizat ion Details LastModified Time What is your exercise level? None [id number] Information not available 11/29/2022 Mental Status None recorded. Family History Relationship Description Onset Age of this Age Resolved Age Notes LastModified by Organization Details LastModified Time Maternal Grandmother Multiple sclerosis [id number] Not available 11/29/2022 04:31:07 Mother Malignant tumor of cervix [id number] Not available 11/29/2022 04:31:07 Medical History Condition Response BLINDNESS N RHEUMATIC FEVER N KIDNEY STONES N BLADDER PROBLEMS N MRSA N OTHER # 1 N POLIO N LUNG DISEASE/DISORDER N RADIATION / CHEMOTHERAPY N COPD N Other # 2 N BLOOD DISEASES N SURGERY N EAR OR HEARING PROBLEMS N MUMPS N FEMALE PROBLEMS / INFECTIONS Y DEPRESSION (INCLUDING POST ) Y BOWEL PROBLEMS Y STROKE/TIA N THYROID DISEASE N ULCERS N BENIGN PROSTATIC HYPERPLASIA N MEASLES N CERVICALGIA N TB SKIN TEST N MYOCARDIAL INFARCTION N PARAPELGIA N OBESITY N GERD/NAUSEA N ANEURYSM N URINARY/BLADDER/KIDNEY PROBLEMS Y CORONARY ARTERY DISEASE (CAD) N MENIERE'S DISEASE N ADDICTION CONCERNS N ENDOMETRIOSIS N USE OF BLOOD THINNERS N SKIN PROBLEMS N EMPHYSEMA N GASTROINTESTINAL DISORDER N MUSCLE,JOINT OR BONE PROBLEMS N GASTROINTESTINAL BLEEDING N BLOOD CLOTS N ASTHMA Y CATARACTS N ERECTILE DYSFUNCTION N GI PROBLEMS N CHF N Low Testosterone N NEUROPATHY N INFERTILITY N AIDS/HIV N FRACTURES N CHEMOTHERAPY / RADIATION N VISION/EYE PROBLEMS N LIVER DISEASE N MALE HYPOGONADISM N HYPERTENSION N TOURETTE'S N ANXIETY DISORDER Y BLOOD TRANSFUSION N ANEMIA/BLOOD DISORDER N CHRONIC EAR INFECTIONS N BRONCHITIS N TUBERCULOSIS N GLAUCOMA N FOOT PROBLEM N DIVERTICULITIS N SLEEP APNEA N CHICKENPOX N ALLERGIES/HAYFEVER Y INFECTIOUS DISEASE N PROSTATE N HEART ARRHYTHMIA N INSOMNIA N HIGH CHOLESTEROL / HYPERLIPIDEMIA N EYE PROBLEMS Y HYPERTHYROIDISM N EATING DISORDER N EDEMA N CHRONIC PAIN SYNDROME N CAROTID BLOCKAGE N CONSTIPATION N BACK / NECK PROBLEMS Y HAVE YOU BEEN HOSPITALIZED OR SEEN IN [facility] IN THE PAST YEAR ? N ATHEROSCLEROSIS N BREAST PROBLEMS Y DIALYSIS N ECZEMA N FIBROMYALGIA N OSTEOPOROSIS N ARTHRITIS N NO SIGNIFICANT PAST MEDICAL HISTORY N APPENDICITIS N DIABETES, TYPE N BAD TEETH N HEARTBURN / REFLUX Y ADD/ADHD N AUTISM SPECTRUM DISORDER (ASD) N HEPATITIS / LIVER DISEASE N PULMONARY DISEASE N GOUT N SLEEP DISORDER N ALZHEIMER'S DISEASE N PAIN N DEMENTIA N HERPES N SEIZURES/EPILEPSY N HEADACHES/MIGRAINES Y VASCULAR DISEASE N PACEMAKER N DIZZINESS N HEART DISEASE/HEART PROBLEMS N KIDNEY DISEASE N SCARLET FEVER N MULTIPLE SCLEROSIS N DEVELOPMENTAL OR BEHAVIORAL DISORDERS N MENTAL DISORDER/ILLNESS N CANCER: SPECIFY N CARDIAC ARRHYTHMIA N PNEUMONIA Y ATRIAL FIBRILLATION N Gall Stones N PULMONARY EMBOLISM N AUTOIMMUNE DISEASE N Gynecological History Statement/Question Response Abnormal Pap Y Date of Last Colonoscopy Date of LMP Menses Monthly N STIs/STDs N Date of Last Pap Smear Current Control Method Hysterectom y Most Recent Mammogram Breast Problems none Obstetrics History GPAL:G 1 P 0 1 0 1 Type Value Premature 1 Living 1 Total 1 Immunizations Vaccine Type Date Status Note Provider Nam e and Address Organization Details Recorded Time Influenza, split virus, quadrivalent, PF 08/01/2019 completed Not Available [facility] 4 08:47:32 Influenza, split virus, quadrivalent, PF 07/08/2021 completed Not Available [facility] 3 04:39:45 Influenza, split virus, quadrivalent, PF 08/22/2017 completed Not Available [facility] 4 08:47:32 Influenza, split virus, quadrivalent, PF 08/07/2023 completed CAPRICE Subramanian, [place] [facility] 08/07/2023 10:49:00 Past Encounters Encounter ID Performer Location Encounter Start Date Encounter Closed Date Diagnosis/Indication Diagnosis SNOMED-CT Code Diagnosis ICD10 Code Diagnosis Note [id number] [facility] [place] [address] [facility] [address] [place] [address] 02/01/2021 00:00:00 02/01/2021 13:59:50 [id number] [facility] [place] [address] [facility] [address] [place] [address] 02/15/2021 00:00:00 02/15/2021 15:19:50 [id number] [facility] General Surgery 4 [facility], [address] [address] 03/24/2021 00:00:00 03/24/2021 16:01:23 [id number] [facility] [place] [address] [facility] [address] [place] [address] 07/08/2021 00:00:00 07/08/2021 21:34:48 [id number] [facility] [place] [address] [facility] [address] [place] [address] 07/22/2021 00:00:00 07/22/2021 21:02:05 [id number] [facility] [place] [address] [facility] [address] [place] [address] 02/21/2022 00:00:00 02/21/2022 14:56:46 [id number] [facility] [place] [address] [facility] [address] [place] [address] 06/08/2022 00:00:00 06/08/2022 13:40:51 [id number] _ATHENA_M IGRATION_ DEFAULT_1 _1 , 02/17/2021 00:00:00 02/17/2021 14:02:32 [id number] SANDRA Benoit [facility] [place] [address] [facility] [address] [place] [address] 01/18/2023 09:10:26 01/18/2023 09:46:57 Mixed anxiety and depressive disorder [id number] F41.8 ChronicNot well controlled off medication s.Pt encouraged to resume all mental health meds over the next 2 weeks. Encouraged pt to resume counseling . Recommend pt try online counselor since her new work schedule is unpredicta ble and she isn't able to make group therapy sessions in the evenings. Postsurgic al menopause [id number] E89.41 ChronicSx improve with Premarin 0.625mg daily, refill given. Migraine 29782281 G43.90 9 ChronicHas failed sumatripta n, amitriptyl ine, topiramate . Headache prevention techniques reviewed. Importance of lifestyle measures reviewed including managing stress, good sleep hygiene, avoiding headache triggers. Ensure take daily preventati ve meds, avoid overuse of headache treatment meds.Will give trial of Aimovig 70mg monthly, sample given. [id number] SANDRA Benoit [facility] [address] [facility] [address] [place] [address] 02/08/2023 14:01:08 02/08/2023 14:42:29 Cigarette smoker 68074820 F17.210 ChronicNo cigarettes x 4 daysContin ue to remain non-smoker . Daytime hypersomnia 3177 [id number] 2728 G47.19 New problemPt states it's not d/t her depression sx.Would like to be checked for anemia. Migraine 63146115 G43.90 9 Improved with Aimovig sample injection last visit.Has failed sumatripta n, amitriptyl ine, topiramate . Headache prevention techniques reviewed. Importance of lifestyle measures reviewed including managing stress, good sleep hygiene, avoiding headache triggers. Ensure take daily preventati ve meds, avoid overuse of headache treatment meds.Start Aimovig 70mg monthly Mixed anxi ety and depressive disorder 140181891 F41.8 F31.9 ChronicImp roving with resumption of mental health medication s. Encouraged pt to resume counseling . Recommend pt try online counselor since her new work schedule is unpredicta ble and she isn't able to make group therapy sessions in the evenings. Postsurgic al menopause 020877068 E89.41 ChronicSx improve with Premarin 0.625mg daily, refill given last visit. Increased frequency of urination 279816014 R35.0 New problemUA sent for C [facility]. Will start on PO abx. Advised continue increased fluid intake to flush urinary tract. Discussed proper feminine hygiene (wipe front to back, unscented soaps/mois turizers, empty bladder immediatel y after sexual activity). Encouraged use of probiotics . Backache [id number] M54.9 New problemDai ly good back mechanics reviewed with patient, good posture, avoid prolonged sitting or standing, stretches given and reviewed with patient. Heat 10-15 minutes 3 times daily as needed for pain or spasms. Go to ED for neurologic symptoms or incontinen ce.Continu e with otc pain relievers per package instructio nsWork note given. [id number] SANDRA Benoit [facility] [address] [facility] [address] [place] [address] 06/13/2023 11:29:06 06/13/2023 14:15:[id number] [facility] Primary Care [facility] [address] [facility] [address] [place] [address] 08/07/2023 08:40:12 08/07/2023 10:17:29 Migraine 81353045 G43.909 Overall stable.Con tinue current medication s.She is experienci ng migraine today, toradol injection given in office per pt. request. Chronic bronchitis 61137 004 J42 Albuterol inhaler as needed. Administra tion of influenza vaccine 80317529 Z23 Vitamin D deficiency 347 31009 E55.9 Start 50,000 units weekly.Rec heck labs in 6 months. Dizziness 266880204 R42 Pt. concerned about blood sugars.Frankie l check labs. Cobalamin deficiency 190 743747 E53.8 Start daily B12 supplement ation.Rech andrey labs in 6 months. Cigarette smoker 6540297 7 F17.210 Has not had a cigarette in 6 months. Encouraged to continue smoking cessation. [id number] CHETAN Berkowitz [facility] Primary Care [facility] [address] [facility] [address] [place] [address] 08/08/2023 11:28:06 08/08/2023 11:45:[id number] [facility] [address] [place] [address] 10/26/2023 08:39:50 10/26/2023 10:28:00 Pain in right hand [id number] 33413 M79.641 -pt fell a couple weeks ago and hit the top of her hand on the ground-f/u with urgent care and xray was negative, told to keep it wrapped and use OTC ibuprofen- pain rated at 6/10 on average-Ib uprofen has not been helping with using 600 mg dosage-ROM is intact, strength is limited-tr ail diclofenac , encouraged to combo with tylenol otc-encour aged to use ice therapy for swelling-p t has continued to work without restrictio ns-pt to f/u as needed [id number] BELINDA Maldonado [facility] [address] [address] 11/06/2023 08:46:22 11/06/2023 10:57:22 Long-term drug therapy [id number] Z79.899 -denies lending, trading, selling any of her medication s-[place] prescript[place] monitoring reviewed-U DS obtained Vitamin D deficiency 347 10314 E55.9 notes hx of deficiency Cobalamin deficiency 190 580469 E53.8 Insomnia 757415425 G47.0 0 -amitripty line is not working for her-will trial 50mg trazodone- f/u in 1 month Mixed anxi ety and depressive disorder 073832502 F41.8 -chronic, stable with use of lorazepam- currently takes 10mg escitalopr am, abilify, and amitripyli ne-psych referral regenerate d-increasi ng escitalopr am to 20mg-f/u 1 in month [id number] BELINDA Maldonado [facility] [address] [place] [address] 11/30/2023 08:06:20 11/30/2023 10:35:49 Acute sinusitis 12848093 J01.90 -pt has been dealing with symptoms for approx 3 weeks-SN/R N, deep wet cough, burning nasal passage-wa s tx in the UC, prednisone and zpak given, mild results-sh e has tried augmentin in the past, noted positive results-tr ial amoxicilli n Chronic bronchitis 85060 004 J42 Insomnia 666180737 G47.0 0 -has not tried the trazodone d/t reading side effects-sh e would like to try increasing the amitriptyl ine-increa sing amitripyli ne to 75mg Mixed anxi ety and depressive disorder 391972097 F41.8 -chronic, stable with use of lorazepam, escitalopr am-has not f/u with psych yet d/t scheduling issues, plans to call today-f/u 1 after seeing psych-refe rral to counseling given [id number] SANDRA Chinchilla [address] [address] 03/31/2024 14:51:31 03/31/2024 16:08:10 Overflow incontinence of urine 948145630 N39.490 Migraine without aura 56 538318 G43.009 Mixed anxi ety and depressive disorder 896651755 F41.8 Screening mammography 24 770786 Z12.31 History of hormone replacement (HRT) 414521718 Z79.890 Hx of hysterotom y, 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 [id number] Mark John MD [facility] [address] [address] 04/25/2024 15:55:27 04/25/2024 16:29:12 Overflow incontinence of urine 961367249 N39.490 Overactive urinary bladder 128721139 N32.81 Recurrent urinary tract infection 425176361 N39.0 Urethral stricture 99106 002 N35.92 [id number] SANDRA Chinchilla [address] [address] 05/15/2024 09:02:39 05/15/2024 10:04:09 Chest pain 89738294 R07.9 Recurrent urinary tract infection 593135916 N39.0 Migraine without aura 56 509736 G43.396 [id number] Rupa Bhatia [facility] [address] [place] [address] [address] 06/18/2024 14:22:34 06/18/2024 17:35:00 [id number] Nathanael Brennan [address] [address] 07/01/2024 14:14:51 07/01/2024 14:48:21 Asthma 352880389 J45.909 Cough 27541885 R05.9 Lightheadedness 04419167 8 R42 Migraine without aura 56 402283 G43.009 Samples of Ubrelvy and Nurtec given, she will call and let us know which works better to start PA.Has failed 2 triptans. [id number] KILO Chinchilla[address] [address] 07/11/2024 11:18:25 07/11/2024 11:42:18 Cough 29079705 R05.9 [id number] [facility] [address] [address] 07/16/2024 14:46:43 07/16/2024 16:21:56 [id number] Rupa Bhatia [facility] [address] [address] 08/13/2024 15:03:59 08/13/2024 16:00:33 [id number] Rupa Bhatia [facility] [address] [address] 09/10/2024 13:53:23 09/10/2024 15:45:42 [id number] Rupa Bhatia [facility] 2043 [facility] [address] [address] 10/08/2024 14:09:49 10/08/2024 15:05:30 [id number] [facility] [address] [place] [address] 11/05/2024 15:08:22 11/05/2024 15:40:32 [id number] SANDRA Chinchilla [facility] [address] [address] 12/26/2024 14:09:14 12/26/2024 15:16:36 Overflow incontinence of urine 790840956 N39.490 Needs cystoscopy and urology appt Herpes labialis 9800056 B00.1 Rare breakouts, takes acyclovir PRN Hypothyroidism 09649522 E03.9 Migraine with aura 71666 06 G43.109 Takes Aimovig Postsurgic al menopause 636700834 E89.41 [id number] Rupa Bhatia, HNP [facility] [address] [place] [address] 01/01/2025 13:58:50 01/01/2025 14:36:03 Health Concerns Section Related Observation LastModified by Organization Detai ls LastModified Time None Recorded Concern Status LastModified by Organization Details LastModified Time None Recorded Advance Directives Directive N: Payers Encounter Date Sequence Insurance Name Policy Number Policy Son Covered Member ID Son Member ID Guarantor Name 04/25/2024 1 [facility] ON OR AFTER 03/31/21 (MEDICAID REPLACEMENT - HMO) Lisa Alavrado [id number] Lisa Alvarado 05/15/2024 1 [facility] ON OR AFTER 03/31/21 (MEDICAID REPLACEMENT - HMO) Lisa Alvarado [id number] Lisa Alvarado 07/01/2024 1 [facility] ON OR AFTER 03/31/21 (MEDICAID REPLACEMENT - HMO) Lisa Alvarado [id number] Lisa Alvarado 07/11/2024 1 [facility] - DOS ON OR AFTER 21 (MEDICAID REPLACEMENT - HMO) Lisa Arellano Maryciprianocheryle [id number] Lisa Martinezcheryle 12/26/2024 1 [facility] - DOS ON OR AFTER 21 (MEDICAID REPLACEMENT - HMO) Lisa Arellano Jenny [id number] Lisa A Jenny Notes Date Note Type Note Provider Name and Address Organization Details Recorded Time 04/25/2024 text/html this patient has a complex history. She had a age 20 and then she subsequently had a hysterectomy at age 22. She then developed this severe bladder emptying problem where I think she was having problems urinating and she said when they looked in her bladder it was just full of outpouchings which sound like multiple diverticuli. Supposedly they remove hardware bladder which sounds like a diverticulectomy. She says her bladder has been smaller and she has had a lot of urinary frequency and urgency and urinary incontinence She was just started on Myrbetriq 25 mg q.day and she says it is helping because she went from having to get up every hour to now she can sleep 2 or 3 hours She does not wear actual pads but she wears what she calls. Panties She has no blood in her urine although her urines palsy is nitrite positive today and small leukocyte esterase so it is possible she could have a UTI today Mark John MD [address] [place] [address], [place] [address], [place], [address], [place] [facility] [employer] 04/25/2024 16:26:10 05/15/2024 text/html Maris Jenny i s a 38 year old female patient here today to FU on an ER visit. Sunday woke up with chest pain, thought it was anxiety related, took a lorazepam, and went to work.Describes as deep burning sensation in upper left chest.Pain did not subside after 4 hours so she went to the ER. Labs and imaging were done in triage but she left prior to seeing a physician.She would like to go over these results.EKG reads possible ST and T wave abnormalities, possible atrial enlargement, and incomplete right bundle branch block. She has a procedure for cystoscopy scheduled for next week and would like this figured out before this procedure. Had E.Coli in urine at last urology appt, would like to FU to ensure is gone. SANDRA Chinchilla [address], [place], [address], [employer] 05/15/2024 09:57:54 07/01/2024 text/html Lisapatricia flynn is a 38 year old female patient here today for a cough. She states she has had an intense (mildly productive) cough for 2 weeks. She has associated wheezing. States exacerbated by talking and excitement.She went to and got an albuterol neb and prednisone, she has an albuterol inhaler, finds this is not effective. States this started after using a bad gas station vape. She has concerns she may have popcorn lung She has migraines once a week. Denies aura. Rizatriptan is not work. SANDRA Chinchilla [address], [place], [address], [employer] [facility] [employer] 07/01/2024 14:47:12 07/11/2024 text/html Lisa Liljedaryl rina is 38 year old female patient here today for concerns a cough. She states she has had an intense (mildly productive) cough for 3 weeks. She has associated wheezing. States exacerbated by talking and excitement.She went to and got an albuterol neb and prednisone, she has an albuterol inhaler, finds this is not effective.Since last visit had tried z-surendra and zyrtec with no improvement. Notes she is now having thick production that will cause her to choke. Worse at bedtime, will wake her from sleep. States this started after using a bad gas station vape. She has concerns she may have popcorn lung SANDRA Chinchilla [address], [place], [address], [employer] [facility] [employer] 07/11/2024 11:42:59 12/26/2024 text/html Lisapatricia flynn is a 39 year old female patient here today for a 6 month FU She still needs a cystoscopy, will need a new referral for urology Migraines are flaring. She is taking Aimovig monthly. She did like Ubrelvy samples. She is also taking amitriptyline 75 mg daily. FU on thyroid labs. Last labs were hypothyroid. Nathanael Brennan, MEDICAL BILLING INSTRUCTOR [address] [facility], [facility] [address], [place], [address], [place] [facility] [employer] 12/26/2024 15:01:54 OBGyn Episode No OBEpisode recorded.
--- OUTSIDE RECORDS SUMMARY | 2025-01-13 10:02 | XMS_ITS | Referral Summary ---
Author Organization [facility] [address] [facility] lto Address [address] [place] [address] Care Team Providers Care Digital Product Specialist Name Role Phone Elo Stringer MD Primary Care Provi dolores Allergies Active Allergy Reactions Criticality Noted Date Comments Amoxicillin Hives,Swelling Reaction: hives, swelling, Medications amitriptyline (ELAVIL) 50 mg tablet amitriptyline 50 mg tablet TAKE 1 TABLET BY MOUTH EVERY DAY AT BEDTIME 1 Active escitalopram (LEXAPRO) 10 mg tablet escitalopram 10 mg tablet TK 1 T PO QD Active escitalopram (LEXAPRO) 5 mg tablet escitalopram 5 mg tablet TAKE 1 TABLET BY MOUTH EVERY DAY 1 Active estrogens, conjugated, (Premarin) 0.625 mg tablet Premarin 0.625 mg tablet TAKE 1 TABLET BY MOUTH EVERY DAY Active LORazepam (ATIVAN) 0.5 mg tablet lorazepam 0.5 mg tablet TAKE 1 TABLET BY MOUTH THREE TIMES DAILY NEEDED 1 Active rOPINIRole (REQUIP) 0.5 mg tablet ropinirole 0.5 mg tablet TAKE 1 TABLET BY MOUTH THREE TIMES DAILY 1 Active SUMAtriptan (IMITREX) 25 mg tablet sumatriptan 25 mg tablet 1 Active ARIPiprazole (Abilify) 5 mg tablet daily Active Active Problems No known active problems Social History Tobacco Use Types Packs/Day Years Used Date Smoking Tobacco: Every Day Alcohol Use Standard Drinks/Week Comments No 0 (1 standard drink = 0.6 oz pur e alcohol) Comments Unknown Sex and Gender Information Value Date Recorded Sex Assigned at Not on file 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 Gender Identity Not on file Sexual Orientation Not on file Last Filed Vital Signs Vital Sign Reading Time Taken Comments Blood Pressure 92/64 08/06/2021 9:42 AM CDT Pulse 102 08/06/2021 9:42 AM CDT Temperature 36.2 C (97.1 F) 08/06/2021 9:42 AM CDT Respiratory Rate 16 08/06/2021 9:42 AM CDT Oxygen Saturation 97% 08/06/2021 9:42 AM CDT Inhaled Oxygen Concentration - - Weight 70.5 kg (155 lb 6.4 oz) 08/06/2021 9:42 A M CDT Height 165.1 cm (5' 5 ) 08/06/2021 9:42 AM CDT Body Mass Index 25.86 08/06/2021 9:42 AM CDT Plan of Treatment Not on file Insurance [facility] Care Teams Digital Product Specialist Relationship Specialty Start Date End Date Elo Stringer MD [address] [place] [address] PCP - General 06/27/07
--- OUTSIDE RECORDS SUMMARY | 2025-01-13 10:02 | XMS_ITS | Clinical Summary ---
Author Organization [facility] [address] [facility] Address [address] [place] [address] Care Team Providers Care Warp Hanger Name Role Phone Elo Stringer MD Primary [...] Active Active Problems No known active problems Surgical History Surgery Date Site/Laterality Comments APPENDECTOMY 2003 Appendectomy SECTION 2006 c section OTHER SURGICAL HISTORY 2007 tumor removed R breast HYSTERECTOMY 2009 Hysterectomy OTHER SURGICAL HISTORY 2011 vaginal fistula repair BREAST BIOPSY 02/27/2019 Right Family History Medical History Relation Name Comments COPD Father 2 COPD; Hyperlipidemia Father 2 Hyperlipidemi a; Other Father 2 Alive and well; Hyperlipidemia Mother 2 Hyperlipidemi a; Other Mother 2 Alive and well; Relation Name Status Comments Father 1 Alive Father 2 Mother 1 Alive Mother 2 Social History Tobacco Use Types Packs/Day Years Used Date Smoking Tobacco: Every Day Alcohol Use Standard Drinks/Week Comments No 0 (1 standard drink = 0.6 oz pur e alcohol) Comments Unknown Sex and Gender Information Value Date Recorded Sex Assigned at Not on file 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 Gender Identity Not on file Sexual Orientation Not on file Obstetrics History Last Filed Vital Signs Vital Sign Reading [...] 08/06/2021 9:42 AM CDT Plan of Treatment Health Maintenance Due Date Last Done Comments Depression Screening 1983 Hepatitis C Screening 1983 DTaP/Tdap/Td Vaccine (1 - Tdap) 1994 Varicella Vaccines (1 of 2 - 13+ 2-dose series) 1996 Hepatitis B Screening 2001 Regular Well Visit/Exam 18-64 2001 Pneumococcal vaccine <65 (1 of 2 - PCV) 2002 Breast Cancer Screening-Mammogram 08/22/2020 08/22/2019, 08/22/2019 Influenza Vaccine (#1) 2024 3, 07/08/2021, 08/01/2019, Additional history exists HPV Vaccines Aged Out No longer eligi ble based on patient's age to complete this topic Insurance [facility] Care Teams Warp Hanger Relationship Specialty Start Date End Date Elo Stringer MD [address] [place] [id number] PCP - General 06/27/07
--- OUTSIDE RECORDS SUMMARY | 2025-01-13 10:02 | XMS_ITS | CONTINUITY OF CARE DOCUMENT ---
Author Name haosusie, haosusie Address Unknown Organization [facility] Address [address] [place] [address] Phone [phone] Care Team Providers Care Primary Counselor Name Role Phone Benji LIRA, German Unavailable [employer] LEGAL PROCESS SPECIALIST, Renetta Unavailable [phone] [employer] LEGAL PROCESS SPECIALIST, Renetta Unavailable PROBLEMS Condition Status Date Provider Notes Cardiology examination active German Leblanc MD Chest pain-type to be determined active Boris Leblanc MD Palpitations active German Leblanc MD Anxiety associated with depression active Brien Leblanc MD ENCOUNTERS Date Type Provider Location Encounter Diag nosis - In-person encounter Office Visit German Leblanc MD [facility] - In-person encounter Office Visit German Leblanc MD [facility] Cardiology examinationChest pain-type to be determinedPalpitationsAnxiety associated with depression VITAL SIGNS Date Observation Value Provider Body Mass Index (Ratio) 28.29 kg/m2 Kirill Leblanc MD blood pressure, cuff size regular Olivier Jimenes blood pressure, diastolic 82 mm[Hg] Olivier Jimenes blood pressure, systolic 118 mm[Hg] Yohannes Jimenes oxygen saturation, oximetry 98 % Lety Jimenes pulse rate 92 /min Lety Jimenes weight E&M 170 [lb_av] Lety Jimenes respiratory rate E&M 12 /min Lety Jimenes height E&M 65 [in_i] Lety Jimenes weight E&M 162 [lb_av] Karen plaza Body Mass Index (Ratio) 26.96 kg/m2 Kirill Leblanc MD weight E&M 162 [lb_av] Lety Jimenes blood pressure, cuff size regular Olivier Jimenes blood pressure, diastolic 72 mm[Hg] Olivier Jimenes blood pressure, systolic 106 mm[Hg] Yohannes Jimenes oxygen saturation, oximetry 98 % Lety Jimenes pulse rate 92 /min Lety Jimenes height E&M 65 [in_i] Lety Jimenes respiratory rate E&M 12 /min Letyingrid Jimnees ALLERGIES Allergy Name Onset Date Reaction Criticality Status AMOXICILLIN High Criticality active HISTORY OF MEDICATION USE Medication Status Instructions Dates Provider Indications Com ments Myrbetriq 25 mg tablet extended release 24 hr active take one tablet by mouth once daily Lety Jimenes Premarin 0.625 mg tablet active take one tablet by mouth once daily Lety Jimenes aripiprazole 15 mg tablet active take one tablet by mouth once daily Lety Jimenes escitalopram oxalate 10 mg tablet active take one tablet by mouth once daily Lety Jimenes lorazepam 1 mg tablet active take one tablet by mouth twice daily PRN Lety Jimenes ropinirole 0.5 mg tablet active take one tablet by mouth once daily Lety Jimenes rizatriptan 10 mg tablet active take one tablet by mouth once daily Lety Jimenes amitriptyline 75 mg tablet active take one tablet by mouth once daily Lety Jimenes SOCIAL HISTORY Date Observation Value Provider personal history of marijuana use no Alni Ventimiglia [facility] drug use no Lani Ventimig jah [facility] alcohol use no Lani Ventimig jah [facility] cigarette use yes Lani sandy [facility] smoking status Former smoker Lani banegas [facility] cigarette use yes German Leblanc MD smoking status Former smoker German lisa MD appendectomy, history of Appendectomy, Hx of German Leblanc MD INSURANCE PROVIDERS Payer name Policy type / Coverage type [place] [employer] [place] [employer] MEDICAID (2) Medicaid [id number] ADVANCE DIRECTIVES Name Date DISCUSSED - NO DECISION MADE TREATMENT PLAN Date Name Performer Cardiology Lanidarrin Verdugo ia [facility] Cardiology:Patient c ontinues to have palpitations b ut no arrhythmia on tele R ecent labswith pcp W ill check iron studies, tsh and mag level if not done Lani Pennlyndseyaly [facility] Cardiology:atypical and most likely secondary to anxiety s tress test negative e cho normal t ida no acute arrhythmia n o further testing at this time Lani Bonnie [facility] Cardiology German Leblanc MD Cardiology:With HR o f 140 last night. Does not occur daily, so will go with 2 week monitor. German Leblanc MD Cardiology:May be mu sculoskeletal or anxiety. N eeds stress test German Leblanc MD Date Name MAGNESIUM TSH, free T4, total T3 IRON AND TOTAL IRON BINDING CAPACITY FERRITIN Stress Routine Monitor - Telemetry (Mobile Cardiac) Complete Echo HISTORY OF PROCEDURES Procedure Date Procedure Name Provider Procedure Notes S tatus EKG German Leblanc MD complete d
--- OUTSIDE RECORDS SUMMARY | 2025-01-13 10:02 | XMS_ITS | Data Portability ---
Author Organization [facility] Address [address] [place] [address] Assessment Encounter Date Assessment Date Assessment LastModified by Organization Details LastModified Time 12/09/2014 12/09/2014 nipple discharge Not available 12/09/2014 11:03:23 Plan of Treatment Reminders Order Date Submit Date Provider Last Modified By Organization Details Last Modified Time Details Appointments None recorded. [facility] prol[facility], serum 2014 [facility], [address] [place] [address], [facility] [address], [place], [address], 5 12:02:07 thyroid panel, serum 2014 015 nmcdonald 6 [facility], [address] [place] [address], [facility] [address], [place], [address], 5 12:02:07 Referral None recorded. Procedures None recorded. Surgeries None recorded. Imaging MAMMO, diagnostic , digital, bilateral - left nipple discharge; history of breast 2014 015 [facility] ([facility] Scheduling, [address] [place], [address], 5 10:37:50 Medication Orders None recorded. Patient TargetsNo targets recorded. Patient Instructions Encounter Date Encounter Id Patient Instructions Last Modified By Organization Details Last Modified Time 12/09/2014 [id number] nipple discharge : care instructions Not available 12/10/2014 12:02:07 Reason for Referral None Reported. Results Created Date Observation Date Name Description Value Unit Range Abnormal Flag Note LastModifiedBy Organization Detail LastModifiedTime 12/10/19 15 12/10/2014 thyro id panel , serum TSH 0.467 uIU/m L 0.450- 4.500 Not Available [facility] ([facility]) [address] [place], [address], 12/10/2014 06:42:08 12/10/19 15 12/10/2014 thyro id panel , serum thyroxine (T4) 7.8 ug/dL 4.5-12 .0 Not Available [facility] ([facility]) [address] [place], [address], 12/10/2014 06:42:08 12/10/19 15 12/10/2014 thyro id panel , serum T3 uptake 32 % 24-39 Not Available [facility] ([facility]) [address] [place], [address], 12/10/2014 06:42:08 12/10/19 15 12/10/2014 thyro id panel , serum free thyroxine index 2.5 1.2-4. 9 Not Available [facility] ([facility]) [address] [place], [address], 12/10/2014 06:42:08 12/10/19 15 12/10/2014 prola ctin, serum prolactin 19.9 NG/mL 4.8-23 .3 Not Available [facility] ([facility]) [address] [place], [address], 12/10/2014 06:42:09 12/16/19 15 12/14/2014 MAMMO , diagn ostic , digit al, bilat eral No observ ation record ed. [email or web address] [facility] ([facility]) Scheduling [address] [place], [address], 12/16/2014 09:29:39 12/16/19 15 12/14/2014 imagi ng/di agnos tic resul t No observ ation record ed. [email or web address] [facility] ([facility]) Scheduling [address] [place], [address], 12/16/2014 09:29:40 12/16/19 15 12/14/2014 MAMMO , diagn ostic , digit al, bilat eral No observ ation record ed. [email or web address] [facility] ([facility]) Scheduling [address] [place], [address], 12/16/2014 09:29:40 12/16/19 15 12/14/2014 imagi ng/di agnos tic resul t No observ ation record ed. [email or web address] [facility] ([facility]) Scheduling [address] [facility] [place], [address], 12/16/2014 09:29:41 06/14/20 15 06/14/2015 ultra sound , breas t No observ ation record ed. [email or web address] [facility] ([facility]) Scheduling 1 [place], [address], 07/02/2015 17:39:33 06/14/20 15 06/14/2015 ultra sound , breas t No observ ation record ed. [email or web address] [facility] ([facility]) Scheduling 1 [facility] [place], [address], 07/02/2015 17:39:33 01/03/20 16 06/14/2015 ultra sound , breas t No observ ation record ed. [email or web address] [facility] [address] [place], [address], 01/24/2016 11:18:44 01/27/20 16 01/19/2016 ultra sound , breas t No observ ation record ed. [email or web address] Not Available 02/01 14:16:07 01/27/20 16 01/19/2016 ultra sound , breas t No observ ation record ed. [email or web address] [facility] [address] [place], [address], 02/02/2016 14:08:15 06/28/20 16 01/19/2016 US, breas t, liudmilaa teral No observ ation record ed. Osf [facility] [address] [place], [address], 06/28/2016 17:13:07 07/10/20 16 01/19/2016 MAMMO , scree fox, bilat eral No observ ation record ed. Osf [facility] [address] [place], [address], 07/11/2016 10:29:23 Result Notes None recorded. Problems Name Problem SNOMED Code Status Onset Date Resolution Date Notes Provider Name and Address Organization Details Recorded Time Discharge from nipple 06141595 Active Charlotte Brayden null, [facility] 5 18:02:45 Breast lump 35661675 Active Vern Blas null, [facility] 6 11:21:45 Problem Notes None recorded. Procedures Surgical History Date Name Laterality Status Provider Name and Address Organization Details Recorded Time 03/25/20 06 Caesarean Section completed Claudette Gracia MA [facility] 12/09/2014 10:13:36 Appendectomy completed Claudette Gracia MA [facility] 12/09/2014 10:13:36 Anesth bladder surgery completed Claudette Gracia MA [facility] 12/09/2014 10:13:36 Breast Surgery completed Claudette Gracia MA [facility] 12/09/2014 10:13:36 Hysterectomy completed Claudette Gracia MA [facility] 12/09/2014 10:13:36 Drain thyroid/tongue cyst completed Claudette Gracia MA [facility] 12/09/2014 10:13:36 Imaging Results Imaging Date Name Status [facility]Modified [facility] Details LastModified Time 12/14/2014 MAMMO, diagnostic, digital, bilateral completed [email or web address] [facility] ([facility]) Scheduling [address] [place], [address], 12/16/2014 09:29:39 12/14/2014 imaging/diagnos tic result completed [email or web address] [facility] ([facility]) Scheduling [address] [place], [address], 12/16/2014 09:29:40 12/14/2014 MAMMO, diagnostic, digital, bilateral completed [email or web address] [facility] ([facility]) Scheduling [address] [place], [address], 12/16/2014 09:29:40 12/14/2014 imaging/diagnos tic result completed [email or web address] [facility] ([facility]) Scheduling [address] [place], [address], 12/16/2014 09:29:41 06/14/2015 ultrasound, breast completed [email or web address] [facility] ([facility]) Scheduling [address] [place], [address], 07/02/2015 17:39:33 06/14/2015 ultrasound, breast completed [email or web address] [facility] ([facility]) Scheduling [address] [place], [address], 07/02/2015 17:39:33 06/14/2015 ultrasound, breast completed [email or web address] [facility] [address] [place], [address], 01/24/2016 11:18:44 01/19/2016 ultrasound, breast completed [email or web address] Information not available 02/02/2016 14:16:07 01/19/2016 ultrasound, breast completed [facility] [address], [address], 02/02/2016 14:08:15 01/19/2016 US, breast, unilateral completed [facility] [address] [place], [address], 06/28/2016 17:13:07 01/19/2016 MAMMO, screening, bilateral completed [facility] [address] [place], [address], 07/11/2016 10:29:23 Procedure Notes None recorded. Medical Equipment None Reported. Allergies Allergen ID Allergen Name Allergen Category Reaction Reaction Severity Criticality Documentation Date Start Date Code Code System Note Provider Name and Address Organization Details Recorded Time 56929 amoxicill in medicatio n hives severe Not available 12/09/2014 723 RxNorm Not Available Not Available Not Available Medications Name Sig Start Date Stop Date Status Note LastModified by Organization Details LastModified Time prednisone 10 mg tablet active Not Available Not Available No t Available azithromycin 250 mg tablet active Not Available Not Availabl e Not Available prednisone 20 mg tablet active Not Available Not Available No t Available acetaminophen 300 mg-codeine 30 mg tablet active Not Available Not Available Not Available fluticasone propionate 50 mcg/actuation nasal spray,suspensio n active Not Available Not Available Not Available Vitals Date Recorded Body height Body mass index (BMI) Body weight Systolic blood pressure Diastolic blood pressure Provider Name and Address Organization Details Last Updated DateTime 12/09/2014 165.1 cm 17.8 kg/m2 31732.81 4674 g 110 mm[Hg] 66 mm[Hg] Claudette Gracia MA [facility] 5 10:13:36 Social History Question Answer Notes LastModified by Organizat ion Details LastModified Time Tobacco Smoking Status Current Every Day Smoker Claudette Gracia MA null, [place] - [place] 12/09/2014 10:13:35 What Is Your Level Of Alcohol Consumption? None Information not available 12/09/2014 Is Blood Transfusion Acceptable In An Emergency? Yes Information not available 12/09/2014 What Is Your Level Of Caffeine Consumption? Heavy Information not available 12/09/2014 Live Alone Or With Others? With Others Information not available 12/09/2014 How Many Children Do You Have? 1 Information not available 12/09/2014 Do You Use Protection During Sex? No Information not available 12/09/2014 What Is Your Relationship Status? Single Information not available 12/09/2014 Are You Sexually Active? Yes Information not available 12/09/2014 How Many Years Have You Smoked Tobacco? 12 ggins Information not available 12/09/2014 Sex: Unknown Functional Status None recorded. Mental Status None recorded. Family History Relationship Description Onset Age of this Age Resolved Age Notes LastModified by Organization Details LastModified Time Mother Malignant tumor of cervix vamsi Not available 2014 10:13:36 Medical History Condition Response Thyroid Problems Y Breast Problem Y Cancer Y Headaches Y Gynecological History Statement/Question Response Sexual Problems? Y Age at First Child 20 Sexually Active? Y Obstetrics History GPAL:G 1 P 0 0 0 1 Type Value Living 1 Total 1 Past Encounters Encounter ID Performer Location Encounter Start Date Encounter Closed Date Diagnosis/Indication Diagnosis SNOMED-CT Code Diagnosis ICD10 Code Diagnosis Note [id number] Aristeo Dior ([facility]) [address] [facility] [address] [place] [address] 12/09/2014 09:54:33 12/10/2014 12:21:36 Discharge from nipple [id number] Health Concerns Section Related Observation LastModified by Organization Detai ls LastModified Time None Recorded Concern Status LastModified by Organization Details LastModified Time None Recorded Advance Directives Directive None Recorded Payers Encounter Date Sequence Insurance Name Policy Number Policy Son Covered Member ID Son Member ID Guarantor Name 12/09/2014 1 [facility] PRIOR TO 03/31/2021 (MEDICAID REPLACEMENT - HMO) Lisapatricia Dobsonson [id number] Lisa Holder Notes Date Note Type Note Provider Name and Address Organization Details Recorded Time 12/09/2014 text/html Complains of nipple discharge from left breast. Has a history of a precancerous lesion of right breast removed 9 years ago. Required no treatment thereafter. Followup mammograms were within normal limits. Patient has had this problem in the past about 2 years ago with Risperdal but was bilateral. Patient is no longer on any medications with the exception of Azo daily. She notes discharge occurs mostly with expression usually during bathing. never bloody/green discharge. 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 She notes ovaries are intact. complains of breast swelling but otherwise no tenderness. Vern anthony [place] - [facility] 12/10/2014 12:02:23 OBGyn Episode No OBEpisode recorded.
--- OUTSIDE RECORDS SUMMARY | 2025-01-13 10:05 | XMS_ITS | CONTINUITY OF CARE DOCUMENT ---
Author Name haosusie, haosusie Address Unknown Organization [facility] Address [address] [place] [address] Phone [phone] Care Team Providers Care Representative Name Role Phone Benji LIRA, German Unavailable Thilker SEW ON OPERATOR, Renetta Unavailable Thilker SEW ON OPERATOR, Renetta Unavailable [phone] PROBLEMS Condition Status Date Provider Notes Cardiology examination active German Leblanc MD Chest pain-type to be determined active Boris Leblanc MD Palpitations active German Leblanc MD Anxiety associated with depression active Brien Leblanc MD ENCOUNTERS Date Type Provider Location Encounter Diag nosis - In-person encounter Office Visit German Leblanc MD [place] [facility] - In-person encounter Office Visit German Leblanc MD [place] [facility] Cardiology examinationChest pain-type to be determinedPalpitationsAnxiety [...] Jimenes respiratory rate E&M 12 /min Letyingrid Jimenes ALLERGIES Allergy Name Onset Date Reaction Criticality [...] Provider personal history of marijuana use no Lani Ventimiglia [facility] drug use no Lani Ventimig jah [facility] alcohol use no Lani Ventimig jah [facility] cigarette use yes Lani sandy [facility] smoking status Former smoker Lani banegas [facility] cigarette use yes German Leblanc MD smoking status Former smoker German lisa MD appendectomy, history of Appendectomy, Hx of German Leblanc MD INSURANCE PROVIDERS Payer name Policy type / Coverage type [place] [employer] [place] [employer] MEDICAID (2) Medicaid [id number] ADVANCE DIRECTIVES Name Date DISCUSSED - NO DECISION MADE TREATMENT PLAN Date Name Performer Cardiology Lanidarrin Verdugo ia [facility] Cardiology:Patient c ontinues to have palpitations b ut no arrhythmia on tele R ecent labswith pcp W ill check iron studies, tsh and mag level if not done Lani Pennlyndseyaly [facility] Cardiology:atypical and most likely secondary to anxiety s tress test negative e cho normal t ida no acute arrhythmia n o further testing at this time Lani Bonnie [facility] Cardiology German Leblanc MD Cardiology:With HR [...]
== END 2025-01-13 11:08 | disposition home or self-care (01) ==
PROVIDERS: Emergency Provider Registered Nurse
DX: M72.2 Plantar fascial fibromatosis (principal); Z87.891 Personal history of nicotine dependence; F12.90 Cannabis use, unspecified, uncomplicated; K58.9 Irritable bowel syndrome, unspecified; F32.A Depression, unspecified
CPT/HCPCS: 73630; 99213; G0463

== ENCOUNTER 2025-04-23 08:16 | Emergency (ER) | payer OTHER, SELFPAY ==
[2025-04-23 08:24] VITALS: BP 122/70; PULSE 102; RESP 16; TEMP 36.6; O2SAT 99
--- OUTSIDE RECORDS SUMMARY | 2025-04-23 08:25 | XMS_ITS | Data Portability ---
Author Organization [facility] Address [address] [place] [address] Assessment Encounter Date Assessment Date Assessment LastModified by Organization Details LastModified Time 12/09/2014 12/09/2014 nipple discharge Not available 12/09/2014 11:03:23 Plan of Treatment Reminders Order Date Submit Date Provider Last Modified By Organization Details Last Modified Time Details Appointments None recorded. Lab prolactin, serum 2014 015 [facility], [address] [place] [address], [address], [place], [address], 5 12:02:07 thyroid panel, serum 2014 015 nmcdonald 6 [facility], [address] [place] [address], [address], [place], [address], 5 12:02:07 Referral None recorded. Procedures None recorded. Surgeries None recorded. Imaging MAMMO, diagnostic , digital, bilateral - left nipple discharge; history of breast 2014 015 [facility] ([facility]) Scheduling, [address] [place], [address], 5 10:37:50 Medication Orders None recorded. Patient TargetsNo targets recorded. Patient Instructions Encounter Date Encounter Id Patient Instructions Last Modified By Organization Details Last Modified Time 12/09/2014 [id number] nipple discharge : care instructions Not available 12/10/2014 12:02:07 Reason for Referral None Reported. Results Created Date Observation Date Name Description Value Unit Range Abnormal Flag Note LastModifiedBy Organization Detail LastModifiedTime 12/10/19 15 12/10/2014 thyro id panel , serum TSH 0.467 uIU/m L 0.450- 4.500 Not Available [facility] ([facility]) [address] [place], [address], 12/10/2014 06:42:08 12/10/19 15 12/10/2014 thyro id panel , serum thyroxine (T4) 7.8 ug/dL 4.5-12 .0 Not Available [facility] ([facility]) [address] [place], [address], 12/10/2014 06:42:08 12/10/19 15 12/10/2014 thyro id panel , serum T3 uptake 32 % 24-39 Not Available [facility] ([facility]) [address] [facility] [place], [address], 12/10/2014 06:42:08 12/10/19 15 12/10/2014 thyro id panel , serum free thyroxine index 2.5 1.2-4. 9 Not Available [facility] ([facility]) [address] [place], [address], 12/10/2014 06:42:08 12/10/19 15 12/10/2014 prola ctin, serum prolactin 19.9 NG/mL 4.8-23 .3 Not Available [facility] ([facility]) [address] [place], [address], 12/10/2014 06:42:09 12/16/19 15 12/14/2014 MAMMO , diagn ostic , digit al, bilat eral No observ ation record ed. [email or web address] [facility] ([facility]) Scheduling [address] [place], [address], 12/16/2014 09:29:39 12/16/19 15 12/14/2014 imagi ng/di agnos tic resul t No observ ation record ed. [email or web address] [facility] ([facility]) Scheduling [address] [facility] [place], [address], 12/16/2014 09:29:40 12/16/19 15 12/14/2014 MAMMO , diagn ostic , digit al, bilat eral No observ ation record ed. [email or web address] [facility] ([facility]) Scheduling [address] [place], [address], 12/16/2014 09:29:40 12/16/19 15 12/14/2014 imagi ng/di agnos tic resul t No observ ation record ed. [email or web address] [facility] ([facility]) Scheduling [address] [facility] [place], [address], 12/16/2014 09:29:41 06/14/20 15 06/14/2015 ultra sound , breas t No observ ation record ed. [email or web address] [facility] ([facility]) Scheduling [address] [place], [address], 07/02/2015 17:39:33 06/14/20 15 06/14/2015 ultra sound , breas t No observ ation record ed. [email or web address] [facility] ([facility]) Scheduling [address] [place], [address], 07/02/2015 17:39:33 01/03/20 16 06/14/2015 ultra sound , breas t No observ ation record ed. [email or web address] [facility] [address] [place], [address], 01/24/2016 11:18:44 01/27/20 16 01/19/2016 ultra sound , breas t No observ ation record ed. [email or web address] Not Available 02/01 14:16:07 01/27/20 16 01/19/2016 ultra sound , breas t No observ ation record ed. [email or web address] [facility] [address] [place], [address], 02/02/2016 14:08:15 06/28/20 16 01/19/2016 US, breas t, unila teral No observ ation record ed. [facility] [address] [place], [address], 06/28/2016 17:13:07 07/10/20 16 01/19/2016 MAMMO , scree fox, bilat eral No observ ation record ed. [facility] [address] [place], [address], 07/11/2016 10:29:23 Result Notes None recorded. Problems Name Problem SNOMED Code Status Onset Date Resolution Date Notes Provider Name and Address Organization Details Recorded Time Discharge from nipple 23463252 Active Charlotte Brayden null, [facility] 5 18:02:45 Breast lump 72545423 Active Vern anthony, [facility] 6 11:21:45 Problem Notes None recorded. Procedures Surgical History Date Name Laterality Status Provider Name and Address Organization Details Recorded Time 03/25/20 06 Caesarean Section completed Claudette Gracia MA [facility] 12/09/2014 10:13:36 Appendectomy completed Claudette Gracia MA [facility] 12/09/2014 10:13:36 Anesth bladder surgery completed Claudette Gracia MA [facility] 12/09/2014 10:13:36 Breast Surgery completed Claudette Gracia MA [facility] 12/09/2014 10:13:36 Hysterectomy completed Claudette Gracia MA [facility] 12/09/2014 10:13:36 Drain thyroid/tongue cyst completed Claudette Gracia MA [facility] 12/09/2014 10:13:36 Imaging Results None recorded. Procedure Notes None recorded. Medical Equipment None Reported. Allergies Allergen ID Allergen Name Allergen Category Reaction Reaction Severity Criticality Documentation Date Start Date Code Code System Note Provider Name and Address Organization Details Recorded Time 18373 amoxicill in medicatio n hives severe Not available 12/09/2014 723 RxNorm CAPRICE Colvin, [facility] 5 10:13:36 Medications Name Sig Start Date Stop Date [...] Body mass index (BMI) Body weight Systolic And Diastolic Provider Name and Address Organization Details Last Updated DateTime 12/09/2014 165.1 cm 17.8 kg/m2 00313.814 674 g 110/66 mm[Hg] Claudette Gracia MA [facility] 12/09/2014 10:13:36 Social History Question Answer Notes LastModified by Organizat ion Details LastModified Time Tobacco Smoking Status Current Every Day Smoker CAPRICE Colvin [facility] 12/09/2014 10:13:35 Is Blood Transfusion Acceptable In An Emergency? [...] Many Years Have You Smoked Tobacco? 12 Information not available 12/09/2014 Sex: Unknown Functional Status Question Answer Note LastModified by Organization D etails LastModified Time What is your level of alcohol consumption? None Information not available 12/09/2014 Mental Status None recorded. Family History Relationship Description Onset Age of this Age Resolved Age Notes LastModified by Organization Details LastModified Time Mother Malignant tumor of cervix Not available 2014 10:13:36 Medical History Condition Response Breast Problem Y Cancer Y Headaches Y Thyroid Problems Y Gynecological History Statement/Question Response Sexual Problems? Y Age at First Child 20 Sexually Active? Y Obstetrics History GPAL:G 1 P 0 0 0 1 Type Value Living 1 Total 1 Past Encounters Encounter ID Performer Location Encounter Start Date Encounter Closed Date Diagnosis/Indication Diagnosis SNOMED-CT Code Diagnosis ICD10 Code Diagnosis Note [id number] MD [facility] ([facility]) 2 [facility] [address] [place] [address] 12/09/2014 09:54:33 12/10/2014 12:21:36 Discharge from nipple 68825494 Health Concerns Section Related Observation LastModified by Organization Detai ls LastModified Time None Recorded Concern Status LastModified by Organization Details LastModified Time None Recorded Advance Directives Directive None Recorded Payers Insurance Date Sequence Insurance Name Policy Number Policy Son Covered Member ID Son Member ID Guarantor Name 12/09/2014 1 [facility] PRIOR TO 2021 (MEDICAID REPLACEMENT - HMO) Lisajenifer Holder [id number] Lisa Holder Notes Date Note Type Note [...] breast swelling but otherwise no tenderness. Vern Blas [facility], [place] - [facility] 12/10/2014 12:02:23 OBGyn Episode No OBEpisode recorded.
--- OUTSIDE RECORDS SUMMARY | 2025-04-23 08:25 | XMS_ITS | Referral Summary ---
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
--- OUTSIDE RECORDS SUMMARY | 2025-04-23 08:25 | XMS_ITS | Data Portability ---
Author Organization [place] [facility], Main Office Address [address] [place] [address] Care Team Providers Care Procedure Manager Name Role Phone NATHANAEL BRENNAN Primary Care Provider NATHANAEL BRENNAN Referring Provider [phone] Assessment No assessment recorded. Plan of Treatment Reminders Order Date Submit Date Provider Last Modified By Organization Details Last Modified Time Details Appointments Follow Up 15 2024 01:00P Nila Bhatia, PMHNP Not available Not available Not available Lab TSH, serum or plasma 2024 025 [place]A [place] [facility] Add On Lab Orders, [address] [place], [address], 12/26/2024 20:42:27 T4, free, serum [address] [facility] Add On Lab Orders, [address] [place], [address], 12/26/2024 20:42:27 T3, free, serum or plasma [address] [facility] Add On Lab Orders, [address] [place], [address], 12/26/2024 20:42:27 TSH + free T4, serum [address] [facility] Add On Lab Orders, [address] [place], [address], 07/01/2024 23:19:10 T3, free, serum or plasma [address] Add On Lab Orders, [address] [place], [address], 07/08/2024 08:08:20 iron panel, serum or plasma [address] [facility] Add On Lab Orders, [address] [place], [address], 07/01/2024 23:19:10 magnesium , serum or plasma [address] Add On Lab Orders, [address] [place], [address], 07/08/2024 08:08:20 CBC w/ auto diff [address] [facility] Add On Lab Orders, [address] [place], [address], 07/01/2024 23:19:10 culture, urine + sensitivi ty [address] (Lab), [address] [place], [address], 05/22/2024 08:11:52 culture, urine + sensitivi ty [address] [facility] Add On Lab Orders, [address] [place], [address], 04/28/2024 13:57:04 Referral urologist referral - Please call patient to schedule an appointme nt. Thank you 2024 025 [email or web address] [facility], [address], [address], [place], [address], 04/06/2025 09:22:18 pulmonolo gist referral - Please call patient to schedule an appointme nt. Thank inge. 2023 024 [email or web address] Beto Corado MD, [address] [place], [address], 08/11/2024 09:05:10 cardiolog ist referral - EKG reads incomplet e right bundle branch block, possible atrial enlargeme nt. Please call patient to schedule an appointme nt. Thank you. 2023 [email or web address] [facility] Referral Fax Line, [address], [address], [place], [address], 06/12/2024 08:42:27 Procedures None recorded. Surgeries None recorded. Imaging CT, chest, w/o contrast - Denied 2023 [email or web address] [place] [address] (Imaging), [address] [facility] [address], [place], [address], 07/21/2024 09:09:26 XR, chest, 2 view 2023 024 [facility] (Imaging), [address] [facility] [address], [place], [address], 07/11/2024 10:46:18 electroca rdiogram [address] [facility], [facility] , [place], [address], 05/15/2024 13:08:02 US, echocardi ogram 2023 [email or web address] [place] [address] Radiology, [facility] [place], [address], 05/29/2024 09:03:08 Medication Orders Myrbetriq 50 mg tablet,ex tended release 2024 025 [facility]01, [address], [place], [place], [id number], 12/26/2024 14:50:10 acyclovir 400 mg tablet 2024 025 YUCAIP[facility]00497, [address], [place], [place], [id number], 12/26/2024 14:50:13 Ubrelvy 100 mg tablet 2024 025 [facility] #92205, [address] , [place], [place], [id number], 12/26/2024 14:50:12 Premarin 0.625 mg tablet 2024 025 [facility] #84977, [address] , [place], [place], [id number], 12/26/2024 14:50:11 Medrol (Surendra) 4 mg tablets in a dose pack [address] Store #14477, [address] [place], [place], [id number], 12/26/2024 14:25:17 Airsupra 90 mcg-80 mcg/actua tion HFA aerosol inhaler 2023 024 [facility] #50189, [address] [place], [place], [id number], 07/01/2024 14:39:12 cetirizin e 10 mg tablet [address] [facility] #82675, [address] , [place], [place], [id number], 12/26/2024 14:25:37 azithromy sujey 250 mg tablet [address] [facility] #11586, [address] , [place], [place], [id number], 12/26/2024 14:25:50 rizatript an 10 mg tablet 2023 024 [facility] #31421, [address] , [place], [place], [id number], 07/01/2024 14:40:43 Patient TargetsNo targets recorded. Patient Instructions Encounter Date Encounter Id Patient Instructions Last Modified By Organization Details Last Modified Time 04/25/2024 [id number] plan 1. The patient needs to be scheduled for a flexible cystoscopy with urethral dilation and cough test diagnosis urethral stricture under MAC anesthesia, Levaquin 500 mg IV, lactated Ringer's 100 cc/hour [email or web address] Not available 04/25/2024 16:24:51 Reason for Referral Associate Manager Affiliate Marketing Referral for Ch est pain EKG reads incomplete right bundle branch block, possible atrial enlargement. Please call patient to schedule an appointment. Thank you. Referring Physician: Nathanael Brennan [facility], Encounter Date: 05/15/2024 Smog Technician Referral for C ough Please call patient to schedule an appointment. Thank inge. Referring Physician: Nathanael Brennan [facility], Encounter Date: 07/11/2024 Urologist Referral for Overf low incontinence of urine Please call patient to schedule an appointment. Thank you Referring Physician: Nathanael Brennan [facility], Encounter Date: 12/26/2024 Results Created Date Observation Date Name Description Value Unit Range Abnormal Flag Note LastModifiedBy Organization Detail LastModifiedTime 04/25/2004/25/2024 urina lysis , dipst ick Color Yellow Not Available [facility] [place] [address], [place], [address], 04/25/2024 16:07:24 04/25/20 24 04/25/2024 urina lysis , dipst ick Appearance Clear Not Available [facility] [place] [address], [place], [address], 04/25/2024 16:07:24 04/25/20 24 04/25/2024 urina lysis , dipst ick Glucose (reference range: negative mg/dl) Negati ve Not Available [facility] [place] [address], [place], [address], 04/25/2024 16:07:24 04/25/20 24 04/25/2024 urina lysis , dipst ick Bilirubin (reference range: negative mg/dl) Negati ve Not Available s_[facility] [address], [place], [address], 04/25/2024 16:07:24 04/25/20 24 04/25/2024 urina lysis , dipst ick Ketone (reference range: negative mg/dl) Negati ve Not Available [facility] [address], [place], [address], 04/25/2024 16:07:24 04/25/20 24 04/25/2024 urina lysis , dipst ick Specific [place] (reference range: 1.005-1.030) 1.030 Not Available s [facility] [address] [place] [address] [address], [place], [address], 04/25/2024 16:07:24 04/25/20 24 04/25/2024 urina lysis , dipst ick Blood (reference range: negative Simón/ l) Non-He molyze d: Trace Not Available [facility] [address] [place] [address] [address], [place], [address], 04/25/2024 16:07:24 04/25/20 24 04/25/2024 urina lysis , dipst ick pH (reference range: 5-7) 6.5 Not Available s_ [facility] [address] [place] [address] [address], [place], [address], 04/25/2024 16:07:24 04/25/20 24 04/25/2024 urina lysis , dipst ick Protein (reference range: negative mg/dl) Negati ve Not Available [facility] [address] [place] [address] [address], [place], [address], 04/25/2024 16:07:24 04/25/20 24 04/25/2024 urina lysis , dipst ick Urobilinogen (reference range: 0.2-1 mg/dl) 0.2 Not Available [facility] [address], [place], [address], 04/25/2024 16:07:24 04/25/20 24 04/25/2024 urina lysis , dipst ick Nitrite (reference rage: negative mg/dl) positi ve Not Available [facility] [address], [place], [address], 04/25/2024 16:07:24 04/25/20 24 04/25/2024 urina lysis , dipst ick Leukocytes (reference range: negative aliyah/ l) Small Not Available [facility] [address] [facility] [address], [place], [address], 04/25/2024 16:07:24 05/13/20 24 05/13/2024 XR, chest , 2 view No observ ation record ed. [email or web address] [place] [address] [address], [place], [address], 05/23/2024 16:48:50 05/15/20 24 05/15/2024 elect rocar diogr am No observ ation record ed. [facility] (Cardiology) [address] [place], [address], 05/15/2024 14:04:39 05/15/20 24 05/15/2024 elect rockevin diogr am No observ ation record ed. [facility] (Cardiology) [address] [place], [address], 05/15/2024 14:04:39 06/20/20 24 06/20/2024 rhyth m strip , EKG* No observ ation record ed. [facility] [address], [place], [address], 06/22/2024 15:10:37 07/01/20 24 07/01/2024 US, echoc ardio gram No observ ation record ed. [facility] [address], [place], [address], 07/01/2024 11:21:53 07/11/20 24 07/11/2024 XR, chest , 2 view No observ ation record ed. [facility] [address], [place], [address], 07/11/2024 11:17:57 01/14/20 25 01/13/2025 XR, foot No observ ation record ed. [facility] [address], [place], [address], 01/13/2025 17:04:33 01/15/20 25 01/14/2025 US, thyro id No observ ation record ed. [facility] [address] [place], [address], 01/14/2025 14:41:09 01/28/20 25 01/27/2025 CT, neck, soft tissu e, w/ contr ast No observ ation record ed. [facility] [address] [place], [address], 01/27/2025 13:01:06 Result Notes None recorded. Problems Name Problem SNOMED Code Status Onset Date Resolution Date Notes Provider Name and Address Organization Details Recorded Time Diastasis of muscle 404776762 Active Not Available [facility] 3 04:34:51 Hernia of abdominal wall Active Not Available [facility] 3 04:34:51 Constipati on 67496960 Active Not Available [facility] 3 04:34:51 Mixed anxiety and depressive disorder 060604961 Active Not Available [facility] 3 04:34:51 Oral herpes simplex infection 077364300 Active Not Available [facility] 3 04:34:51 Genital herpes simplex 51741107 Active Not Available [facility] 3 04:34:51 Postsurgic al menopause 429656385 Active Not Available [facility] 3 04:34:51 Ingrowing toenail 286225367 Active Not Available [facility] 3 04:34:51 Contact dermatitis 16142374 Active Not Available [facility] 3 04:34:51 Environmen juan allergy 654256383 Active Not Available [facility] 3 04:34:51 Incontinen ce 73887438 Active Not Available [facility] 3 04:34:51 Decreased body mass index 7871850 Active Not Available [facility] 3 04:34:51 Urinary tract infectious disease 64060566 Active Not Available [facility] 3 04:34:51 Dyspareuni a 03800580 Active Not Available [facility] 3 04:34:51 Candidiasi s of vagina 80993551 Active Not Available [facility] 3 04:34:51 Smoker 81674947 Active Not Available [facility] 3 04:34:51 Migraine 40691705 Active 2022 SANDRA Benoit [address], [address], [place], [address] , [employer] [facility] 3 09:31:47 Cigarette smoker 89863217 Active 2022 SANDRA Benoit [address], [address], [place], [address] , [employer] [facility] 3 14:13:44 Daytime hypersomni a 6127490488434 2 Active 2022 SANDRA Benoit [address], [address], [place], [address] , [employer] [facility] 3 14:17:53 Increased frequency of urination 192171497 Active 2022 Sunnyangela SANDRA Vallejo [address], [address], [place], [address] , [employer] [facility] 3 14:22:48 Backache 967471957 Active 2022 Sunnyangela SANDRA Vallejo [address], [address], [place], [address] , [employer] [facility] 3 14:23:52 COVID-19 372925741 Active 2022 BELINDA Maldonado [address], [address], [place], [address] , [employer] 3 10:30:52 Chronic bronchitis 59659665 Active 2022 CHETAN eBrkowitz [address], [address], [place], [address] , [employer] 3 09:11:56 Vitamin D deficiency 19710465 Active 2022 CHETAN Berkowitz [address], [address], [place], [address] , [employer] 3 09:20:59 Dizziness 245223103 Active 2022 CHETAN Berkowitz [address], [address], [place], [address] , [employer] 3 09:22:57 Cobalamin deficiency 720324368 Active 2022 CHETAN Berkowitz [address], [address], [place], [address] , [employer] [facility] 3 09:26:16 Pain in right hand 5340588011314 09 Active 2023 BELINDA Maldonado [address], [address], [place], [address] , [employer] [facility] 4 08:54:45 Insomnia 080113294 Active 2023 BELINDA Maldonado [address], [address], [place], [address] , [employer] [facility] 4 09:07:01 Upper respirator y infection 54136425 Active 2023 BELINDA Maldonado [address], [address], [place], [address] , [place] [facility] [facility] 4 08:17:11 Acute sinusitis 49454373 Active 2023 BELINDA Maldonado [address], [address], [place], [address] , [employer] [facility] 4 08:17:18 Type 1 diabetes mellitus without complicati on 342502726 Active 2023 SANDRA Chinchilla [address], [address], [place], [address] , [employer] [facility] [facility] 4 15:40:25 Overflow incontinen ce of urine 567412752 Active 2023 SANDRA Chinchilla [address], [address], [place], [address] , [employer] [facility] 4 15:40:37 Migraine without aura 86026354 Active 2023 SANDRA Chinchilla [address], [address], [place], [address] , [employer] [facility] [facility] 4 15:43:33 Blephariti s of left eyelid 0442339176936 02 Active 2023 SANDRA Chinchilla [address], [address], [place], [address] , [employer] [facility] [facility] 4 15:55:37 Xanthoma of upper eyelid 484890667 Active 2023 SANDRA Chinchilla [address], [address], [place], [address] , [employer] [facility] [facility] 4 16:00:50 Urinary incontinen ce 377443787 Active 2023 Nicole Small CMA null, [place] [facility] [facility] 4 16:07:26 Overactive urinary bladder 408812837 Active 2023 Mark John MD [address], [address], [place], [address] , [facility] [place] [facility] 4 16:23:43 Recurrent urinary tract infection 077935990 Active 2023 Mark John MD [address], [address], [place], [address] , [facility] [place] [facility] 4 16:23:52 Urethral stricture 28134512 Active 2023 Mark John MD [address], [address], [place], [address] , [facility] - [facility] [place] [facility] 4 16:25:05 Acute urinary tract infection 026067629 Active 2023 Mark John MD [address], [address], [place], [address] , [facility] - [facility] 4 20:15:52 Diverticul itis of colon 007139337 Active 2023 Mark John MD [address], [address], [place], [address] , [facility] - [facility] 4 20:16:21 Chest pain 70042537 Active 2023 SANDRA Chinchilla [address], [address], [place], [address] , [facility] [facility] 4 09:37:58 Wheezing symptom 322913104 Active 2023 SANDRA Chinchilla [address], [address], [place], [address] , [facility] - [facility] 4 14:34:17 Asthma 291078325 Active 2023 SANDRA Chinchilla [address], [address], [place], [address] , [facility] - [facility] 4 14:34:32 Cough 54862345 Active 2023 SANDRA Chinchilla [address] [facility], [address], [address] , [employer] [facility] 4 14:35:13 Lightheade dness 091253878 Active 2023 SANDRA Chinchilla [address] [facility], [address], [address] , [employer] [facility] 4 14:36:34 Herpes labialis 4506326 Active 2024 SANDRA Chinchilla [address] [facility], [address], [address] , [employer] [facility] 5 14:44:48 Migraine with aura 9167545 Active 2024 SANDRA Chinchilla [address] [facility], [address], [address] , [employer] 5 14:47:14 Hyperthyro idism 77410983 Active 2024 SANDRA Chinchilla [address] [facility], [address], [address] , [employer] [facility] 5 09:38:54 Radiology result abnormal 771333279 Active 2024 SANDRA Chinchilla [address] [facility], [address], [address] , [employer] [facility] 5 13:42:03 Thyroid nodule 680754655 Active 2024 SANDRA Chinchilla [address] [facility], [address], [address] , [employer] [facility] 5 13:42:32 Problem Notes None recorded. Procedures Surgical History Date Name Laterality Status Provider Name and Address Organization Details Recorded Time Appendectomy completed Not Available [facility] 11/29/2022 04:31:04 section completed Not Available [facility] 11/29/2022 04:31:04 reconstruction of female urinary bladder neck completed Not Available [facility] 11/29/2022 04:31:04 cystoscopy completed Not Available [facility] 11/29/2022 04:31:04 Thyroid Surgery completed [facility] Available [facility] 11/29/2022 04:31:04 Breast Surgery completed Not Available [facility] 11/29/2022 04:31:04 [facility]22 04:31:04 Colposcopy completed Not Available [facility] 11/29/2022 04:31:04 Breast Surgery completed Not Available [facility] 11/29/2022 04:31:04 Imaging Results None recorded. Procedure Notes None recorded. Medical Equipment None Reported. Allergies Allergen ID Allergen Name Allergen Category Reaction Reaction Severity Criticality Documentation Date Start Date Code Code System Note Provider Name and Address Organization Details Recorded Time 6582 amoxicill in medicatio n hives Not available Not available 11/29/2022 723 RxNorm Not Available [facility] 04:39:56 53082 Flagyl medicatio n vomiting Not available low 05/15/2024 37921 6 RxNorm Cortney Piña RN [facility], [place] [email or web address] [facility] 09:25:13 Medications Name Sig Start Date Stop [...] t Available Vitals Date Recorded Body height Body mass index (BMI) Body weight Body temperature Heart rate Respiratory rate Oxygen saturation Oxygen saturation in Arterial blood by Pulse oximetry Pain severity - 0-10 verbal numeric rating [Score] - Reported Systolic And Diastolic Provider Name and Address Organization Details Last Updated DateTime 5 165.1 cm 28.3 kg/m2 31819.0 5 g 97.6 [degF] 96 /min 20 /min 96 % 96 % 0 110/76 mm[Hg] Cortney Piña RN [facility] 5 14:29:25 Date Recorded Body height Heart rate Body temperature Body mass index (BMI) Body weight Oxygen saturation Oxygen saturation in Arterial blood by Pulse oximetry Provider Name and Address Organization Details Last Updated DateTime 4 165.1 cm 119 /min 97 [degF] 27.3 kg/m2 70610.1 5 g 98 % 98 % Nicole Small CMA [employer] 4 16:06:53 Date Recorded Body height Body mass index (BMI) Body weight Body temperature Heart rate Respiratory rate Oxygen saturation Oxygen saturation in Arterial blood by Pulse oximetry Pain severity - 0-10 verbal numeric rating [Score] - Reported Systolic And Diastolic Provider Name and Address Organization Details Last Updated DateTime 4 165.1 cm 27.6 kg/m2 68286.8 9 g 97.9 [degF] 93 /min 20 /min 98 % 98 % 0 114/74 mm[Hg] Cortney Piña RN [facility] 4 09:29:16 Date Recorded Body height Body mass index (BMI) Body weight Body temperature Heart rate Respiratory rate Oxygen saturation Oxygen saturation in Arterial blood by Pulse oximetry Pain severity - 0-10 verbal numeric rating [Score] - Reported Systolic And Diastolic Provider Name and Address Organization Details Last Updated DateTime 4 165.1 cm 27.5 kg/m2 55649.7 4 g 97.3 [degF] 123 /min 20 /min 98 % 98 % 0 122/80 mm[Hg] Cortney Piña RN [facility] [employer] [facility] 4 14:27:55 Date Recorded Body height Body mass index (BMI) Body weight Body temperature Heart rate Respiratory rate Oxygen saturation Oxygen saturation in Arterial blood by Pulse oximetry Pain severity - 0-10 verbal numeric rating [Score] - Reported Systolic And Diastolic Provider Name and Address Organization Details Last Updated DateTime 4 165.1 cm 28.3 kg/m2 17600.0 5 g 97.3 [degF] 117 /min 20 /min 97 % 97 % 0 122/82 mm[Hg] Cortney Piña RN [facility] 4 11:26:11 Social History Question Answer Notes LastModified by Organizat ion Details LastModified Time Tobacco Smoking Status Former Smoker 1 year Cortney Piña RN [facility] [place] [facility] / ?.?? [facility] 03/31/2024 15:24:56 Do You Have An Advance Directive? No Information not available 03/31/2024 Is Blood Transfusion Acceptable In An Emergency? Yes Information not available 03/31/2024 What Is Your Level Of Caffeine Consumption? Heavy [id number] Information not available 11/29/2022 How Much Tobacco Do You Chew? None [id number] Information not available 11/29/2022 What Is Your Code Status? Full Code Information not available 03/31/2024 In The 14 Days Before Symptom Onset, Have You Had Close Contact With A Laboratory-confi rmed COVID-19 While That Case Was Ill? No Information not available 06/13/2023 In The 14 Days Before Symptom Onset, Have You Had Close Contact With A Person Who Is Under Investigation For COVID-19 While That Person Was Ill? No [email or web address] Information not available 06/13/2023 What Type Of Diet Are You Following? REGULAR [id number] Information not available 11/29/2022 Which Illicit Or Recreational Drugs Have You Used? No [email or web address] Information not available 06/13/2023 Have There Been Any Changes To Your Family Or Social Situation? No Information not available 03/31/2024 When Did You Quit Smoking? 1-5yearssincelastci daniel Information not available 03/31/2024 Are There Any Guns Present In Your Home? No [email or web address] Information not available 06/13/2023 How Many Years Have You Used Illicit Or Recreational Drugs? 4 Information not available 03/31/2024 Do You Use Insect Repellent Routinely? No Information not available 03/31/2024 Where Do You Live? SingleLevelHouse Information not available 03/31/2024 Do You Have A Medical Power Of Truck Trailer Mechanic? No Information not available 03/31/2024 How Many [...] Age Did You Start Smoking Tobacco? 13 [email or web address] Information not available 06/13/2023 Are You Passively Exposed To Smoke? No [email or web address] Information not available 06/13/2023 Are There Any Smokers In Your House? No Information not available 03/31/2024 How Much Tobacco Do You Smoke? 0.5 PPD [id number] Information not available 11/29/2022 Do You Participate In Social Media? Yes Information not available 03/31/2024 Do You Use Sunscreen Routinely? No Information not available 03/31/2024 How Many Years Have You Smoked Tobacco? 20 [email or web address] Information not available 06/13/2023 Have You Recently Traveled Abroad? No Information not available 03/31/2024 Have You Used IV Drugs? No Information not available 03/31/2024 How Many Years Have You Used E-cigarettes Or Vape? 1 Information not available 03/31/2024 Sex: Unknown Functional Status Question Answer Note LastModified by Organizat ion Details LastModified Time Do you use any illicit or recreational drugs? Yes MJ Information not available 03/31/2024 Do you or have you ever used any other forms of tobacco or nicotine? Yes Information not available 03/31/2024 What is your level of alcohol consumption? None [id number] Information not available 11/29/2022 Do you or have you ever used smokeless tobacco? Never used smokeless tobacco [id number] Information not available 11/29/2022 Are you currently employed? 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 Current user of electronic cigarettes Information not available 03/31/2024 What is your exercise level? None [id number] Information not available 11/29/2022 Mental Status Question Answer Note LastModified by Organization D etails LastModified Time Do you feel stressed (tense, restless, nervous, or anxious, or unable to sleep at night)? [id number] Information not available 03/31/2024 Family History Relationship Description Onset Age of this Age Resolved Age Notes LastModified by Organization Details LastModified Time Maternal Grandmother Multiple sclerosis [id number] Not available 11/29/2022 04:31:07 Mother Malignant tumor of cervix [id number] Not available 11/29/2022 04:31:07 Medical History Condition Response BLINDNESS N RHEUMATIC FEVER N KIDNEY STONES N BLADDER PROBLEMS N MRSA N OTHER # 1 N POLIO N LUNG DISEASE/DISORDER N RADIATION / CHEMOTHERAPY N COPD N Other # 2 N BLOOD DISEASES N SURGERY N EAR OR HEARING PROBLEMS N MUMPS N BOWEL PROBLEMS Y FEMALE PROBLEMS / INFECTIONS Y DEPRESSION (INCLUDING POST ) Y STROKE/TIA N THYROID DISEASE N ULCERS [...] GLAUCOMA N FOOT PROBLEM N DIVERTICULITIS N CHICKENPOX N SLEEP APNEA N ALLERGIES/HAYFEVER Y INFECTIOUS DISEASE N HEART ARRHYTHMIA N PROSTATE N INSOMNIA N HIGH CHOLESTEROL / HYPERLIPIDEMIA N HYPERTHYROIDISM N EYE PROBLEMS Y EATING DISORDER N EDEMA N CHRONIC PAIN SYNDROME N CAROTID BLOCKAGE N CONSTIPATION N BACK / NECK PROBLEMS Y HAVE YOU BEEN HOSPITALIZED OR SEEN IN [facility] IN THE PAST YEAR ? N ATHEROSCLEROSIS [...] DISORDER N ALZHEIMER'S DISEASE N PAIN N HERPES N DEMENTIA N HEADACHES/MIGRAINES Y SEIZURES/EPILEPSY N VASCULAR DISEASE N PACEMAKER N DIZZINESS N HEART DISEASE/HEART PROBLEMS N KIDNEY DISEASE N DEVELOPMENTAL OR BEHAVIORAL DISORDERS N MULTIPLE SCLEROSIS N SCARLET FEVER N MENTAL DISORDER/ILLNESS N CARDIAC ARRHYTHMIA N CANCER: SPECIFY N PNEUMONIA Y ATRIAL FIBRILLATION N Gall [...] virus, quadrivalent, PF 08/01/2019 completed Not Available [facility] 4 08:47:32 Influenza, split virus, quadrivalent, PF 07/08/2021 completed Not Available [facility] 3 04:39:45 Influenza, split virus, quadrivalent, PF 08/22/2017 completed Not Available [facility] 4 08:47:32 Influenza, split virus, quadrivalent, PF 08/07/2023 completed CAPRICE Subramanian[email or web address] [email or web address] 08/07/2023 10:49:00 Past Encounters Encounter ID Performer Location Encounter Start Date Encounter Closed Date Diagnosis/Indication Diagnosis SNOMED-CT Code Diagnosis ICD10 Code Diagnosis Note [id number] SANDRA Benoit [facility] Primary Care [place] [address] [place] [address] 02/01/2021 00:00:00 02/01/2021 13:59:50 [id number] SANDRA Benoit [facility] Primary Care [address] [address] 02/15/2021 00:00:00 02/15/2021 15:19:50 [id number] Moncho shepaprd MD [facility] General Surgery 4 [facility], [address] [address] 03/24/2021 00:00:00 03/24/2021 16:01:23 [id number] Flor Carlson MD [facility] Primary Care [address] [address] 07/08/2021 00:00:00 07/08/2021 21:34:48 [id number] Flor Carlson MD [facility] Primary Care [address] [address] 07/22/2021 00:00:00 07/22/2021 21:02:05 [id number] SANDRA Benoit [facility] Primary Care [address] [address] 02/21/2022 00:00:00 02/21/2022 14:56:46 [id number] SANDRA Benoit [facility] Primary Care [address] [place] [address] 06/08/2022 00:00:00 06/08/2022 13:40:51 [id number] [facility] ic_[facility] _ATHENA_M IGRATION_ DEFAULT_1 _1 , 02/17/2021 00:00:00 02/17/2021 14:02:32 [id number] Flor Carlson MD [facility] Primary Care [facility] [address] [facility] [address] [place] [address] 01/18/2023 09:10:26 01/18/2023 09:46:57 Mixed anxiety and depressive disorder 981732173 F41.8 ChronicNot well controlled off medication s.Pt encouraged to resume all mental health meds over the next 2 weeks. Encouraged pt to resume counseling . Recommend pt try online counselor since her new work schedule is unpredicta ble and she isn't able to make group therapy sessions in the evenings. Postsurgic al menopause 055240802 E89.41 ChronicSx improve with Premarin 0.625mg daily, refill given. Migraine 80185277 G43.90 9 ChronicHas failed sumatripta n, amitriptyl ine, topiramate . Headache prevention techniques reviewed. Importance of lifestyle measures reviewed including managing stress, good sleep hygiene, avoiding headache triggers. Ensure take daily preventati ve meds, avoid overuse of headache treatment meds.Will give trial of Aimovig 70mg monthly, sample given. [id number] SANDRA Benoit [facility] Primary Care [facility] [address] [facility] [address] [place] [address] 02/08/2023 14:01:08 02/08/2023 14:42:29 Cigarette smoker 06756921 F17.210 ChronicNo cigarettes x 4 daysContin ue to remain non-smoker . Daytime hypersomnia 3177 444825 1207 G47.19 New problemPt states it's not d/t her depression sx.Would like to be checked for anemia. Migraine 76824457 G43.90 9 Improved with Aimovig sample injection last visit.Has failed sumatripta n, amitriptyl ine, topiramate . Headache prevention techniques reviewed. Importance of lifestyle measures reviewed including managing stress, good sleep hygiene, avoiding headache triggers. Ensure take daily preventati ve meds, avoid overuse of headache treatment meds.Start Aimovig 70mg monthly Mixed anxi ety and depressive disorder 789164263 F41.8 F31.9 ChronicImp roving with resumption of mental health medication s. Encouraged pt to resume counseling . Recommend pt try online counselor since her new work schedule is unpredicta ble and she isn't able to make group therapy sessions in the evenings. Postsurgic al menopause 959655861 E89.41 ChronicSx improve with Premarin 0.625mg daily, refill given last visit. Increased frequency of urination 798568487 R35.0 New problemUA sent for C & S. Will start on PO abx. Advised continue increased fluid intake to flush urinary tract. Discussed proper feminine hygiene (wipe front to back, unscented soaps/mois turizers, empty bladder immediatel y after sexual activity). Encouraged use of probiotics . Backache 173752354 M54.9 New problemDai ly good back mechanics reviewed with patient, good posture, avoid prolonged sitting or standing, stretches given and reviewed with patient. Heat 10-15 minutes 3 times daily as needed for pain or spasms. Go to ED for neurologic symptoms or incontinen ce.Continu e with otc pain relievers per package instructio nsWork note given. [id number] Flor Carlson MD [facility] Primary Care [facility] [address] [facility] [address] [place] [address] 06/13/2023 11:29:06 06/13/2023 14:15:46 [id number] Flor Carlson MD [facility] Care [facility] [address] [facility] [address] [place] [address] 08/07/2023 08:40:12 08/07/2023 10:17:29 Migraine 68613898 G43.909 Overall stable.Con tinue current medication s.She is experienci ng migraine today, toradol injection given in office per pt. request. Chronic bronchitis 85212 004 J42 Albuterol inhaler as needed. Administra tion of influenza vaccine 89849689 Z23 Vitamin D deficiency 347 85065 E55.9 Start 50,000 units weekly.Rec heck labs in 6 months. Dizziness 051619881 R42 Pt. concerned about blood sugars.Frankie l check labs. Cobalamin deficiency 190 463786 E53.8 Start daily B12 supplement ation.Rech andrey labs in 6 months. Cigarette smoker 8303315 7 F17.210 Has not had a cigarette in 6 months. Encouraged to continue smoking cessation. [id number] Flor Carlson MD [facility] Primary Care [facility] [address] [facility] [address] [place] [address] 08/08/2023 11:28:06 08/08/2023 11:45:50 [id number] BELINDA Maldonado [facility] Primary Care [facility] [address] [facility] [address] [place] [address] 10/26/2023 08:39:50 10/26/2023 10:28:00 Pain in right hand [id number] 38021 M79.641 -pt fell a couple weeks ago [...] without restrictio ns-pt to f/u as needed [id number] BELINDA Maldonado [facility] Care [facility] [address] [facility] [address] [place] [address] 11/06/2023 08:46:22 11/06/2023 10:57:22 Long-term drug therapy 463604338 Z79.899 -denies lending, trading, selling any of her medication s-[place] reviewed-U DS obtained Vitamin D deficiency 347 07413 E55.9 notes hx of deficiency Cobalamin deficiency 190 145902 E53.8 Insomnia 093972587 G47.0 0 -amitripty line is not working for her-will trial 50mg trazodone- f/u in 1 month Mixed anxi ety and depressive disorder 484776788 F41.8 -chronic, stable with use of lorazepam- currently takes 10mg escitalopr am, abilify, and amitripyli ne-psych referral regenerate d-increasi ng escitalopr am to 20mg-f/u 1 in month [id number] Flor Carlson MD [facility] Primary Care [facility] [address] [facility] [address] [place] [address] 11/30/2023 08:06:20 11/30/2023 10:35:49 Acute sinusitis 59769781 J01.90 -pt has been dealing with symptoms for approx 3 weeks-SN/R N, deep wet cough, burning nasal passage-wa s tx in the UC, prednisone and zpak given, mild results-sh e has tried augmentin in the past, noted positive results-tr ial amoxicilli n Chronic bronchitis 96576 004 J42 Insomnia 826340369 G47.0 0 -has not tried the trazodone d/t reading side effects-sh e would like to try increasing the amitriptyl ine-increa sing amitripyli ne to 75mg Mixed anxi ety and depressive disorder 209772323 F41.8 -chronic, stable with use of lorazepam, escitalopr am-has not f/u with psych yet d/t scheduling issues, plans to call today-f/u 1 after seeing psych-refe rral to counseling given [id number] Chemo Handy MD [facility] [address] [place] [address] 03/31/2024 14:51:31 03/31/2024 16:08:10 Overflow incontinence of urine 591810124 N39.490 Migraine without aura 56 796449 G43.009 Mixed anxi ety and depressive disorder 703113721 F41.8 Screening mammography 24 375245 Z12.31 History of hormone replacement (HRT) 531727311 Z79.890 Hx of hysterotom y, 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 [id number] Mark John MD [facility] [place] [address] [facility] [address] [place] [address] 04/25/2024 15:55:27 04/25/2024 16:29:12 Overflow incontinence of urine 644829865 N39.490 Overactive urinary bladder 119146214 N32.81 Recurrent urinary tract infection 458537908 N39.0 Urethral stricture 56552 002 N35.92 [id number] Chemo Handy MD [facility] [address] [place] [address] 05/15/2024 09:02:39 05/15/2024 10:04:09 Chest pain 67829342 R07.9 Recurrent urinary tract infection 254174185 N39.0 Migraine without aura 56 750073 G43.867 [id number] [facility] [address] [address] 06/18/2024 14:22:34 06/18/2024 17:35:00 [id number] Chemo Handy MD [address] [address] 07/01/2024 14:14:51 07/01/2024 14:48:21 Asthma 064560303 J45.909 Cough 67322462 R05.9 Lightheadedness 68544987 8 R42 Migraine without aura 56 514049 G43.009 Samples of Ubrelvy and Nurtec given, she will call and let us know which works better to start PA.Has failed 2 triptans. [id number] Chemo Handy MD [address] [address] 07/11/2024 11:18:25 07/11/2024 11:42:18 Cough 75116534 R05.9 [id number] [facility] [address] [address] 07/16/2024 14:46:43 07/16/2024 16:21:56 [id number] Rupa Bhatia [facility] [address] [address] 08/13/2024 15:03:59 08/13/2024 16:00:33 [id number] [facility] [address] [address] 09/10/2024 13:53:23 09/10/2024 15:45:42 [id number] [facility] [address] [place] [address] [address] 10/08/2024 14:09:49 10/08/2024 15:05:30 [id number] [facility] [address] [place] [address] [address] 11/05/2024 15:08:22 11/05/2024 15:40:32 [id number] Chemo Handy MD [facility] [address] [address] 12/26/2024 14:09:14 12/26/2024 15:16:36 Overflow incontinence of urine 416409890 N39.490 Needs cystoscopy and urology appt Herpes labialis 8817515 B00.1 Rare breakouts, takes acyclovir PRN Hypothyroidism 44076670 E03.9 Migraine with aura 01546 06 G43.109 Takes Aimovig Postsurgic al menopause 470636204 E89.41 [id number] [facility]upa [facility]hatia [facility] [address] [place] [address] [address] 01/01/2025 13:58:50 01/01/2025 14:36:03 [id number] [facility]hat[facility] [address] [place] [address] [address] 02/18/2025 15:32:54 02/18/2025 17:12:14 Health Concerns Section Related Observation LastModified by Organization Detai ls LastModified Time None Recorded Concern Status LastModified by Organization Details LastModified Time None Recorded Advance Directives Directive N: Payers Insurance Date Sequence Insurance Name Policy Number Policy Son Covered Member ID Son Member ID Guarantor Name 02/18/2025 1 [facility] - DOS ON OR AFTER 21 (MEDICAID REPLACEMENT - HMO) Lisa Alvarado [id number] Lisa Alvarado Notes Date Note Type Note Provider Name [...] have a UTI today Mark John MD [address] [facility] [facility] [address], [place], [address], [employer] 04/25/2024 16:26:10 05/15/2024 text/html Maris Alvarado i s a 38 year old female [...] to ensure is gone. SANDRA Chinchilla [address] [facility] [address], [place], [address], [employer] 05/15/2024 09:57:54 07/01/2024 text/html Lisa flynn is a 38 year old female [...] Rizatriptan is not work. SANDRA Chinchilla [address], [place], [address], [employer] 07/01/2024 14:47:12 07/11/2024 text/html Lisa flynn is 38 year old female patient here [...] may have popcorn lung SANDRA Chinchilla [address], [place], [address], [employer] 07/11/2024 11:42:59 12/26/2024 text/html Lisa flynn is a 39 year old female patient here today for a 6 month FU She still needs a cystoscopy, will need a new referral for urology Migraines are flaring. She is taking Aimovig monthly. She did like Ubrelvy samples. She is also taking amitriptyline 75 mg daily. FU on thyroid labs. Last labs were hypothyroid. SANDRA Chinchilla [address], [place], [address], [employer] 12/26/2024 15:01:54 OBGyn Episode No OBEpisode recorded.
--- OUTSIDE RECORDS SUMMARY | 2025-04-23 08:25 | XMS_ITS | Clinical Summary ---
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
[2025-04-23 08:40] LABS: EDSTREPNEGPOS1 Negative (Negative)
--- NOTE | 2025-04-23 09:00 | ED_ITS ---
HPI - URI/Sore Throat General Chief Complaint: Upper Respiratory Infection Stated Complaint: Sore Throat/Cough Time Seen by Provider: 04/23/25 08:40 Source: patient and RN notes reviewed Mode of arrival: ambulatory Limitations: no limitations History of Present Illness HPI Narrative: 39-year-old female presents [facility] complaining of upper respiratory symptoms for approximately 3 days. Patient reports sore throat, body aches, dry nonproductive cough, congestion, runny nose. She reports her throat feels like it is on fire. She denies any ear pain, chest pain, shortness of breath, nausea, vomiting, diarrhea, fevers, or any other symptoms. Patient has been taking Motrin to help with symptoms without much relief. Patient has a history of bipolar disorder. Patient says her cough is sporadic he will go into coughing fits that are especially worse at night. Related Data Home Medications ?Medication ?Instructions ?Recorded ?Confirmed ?Last Taken ?Type conjugated estrogens 0.625 mg 0.625 mg PO DAILY 05/19/20 07/24/24 Unknown History tablet (Premarin) amitriptyline 50 mg tablet 75 mg PO QHS 10/09/23 07/24/24 Unknown History cholecalciferol (vitamin D3) 1,250 1,250 mcg PO WEEKLY 10/09/23 07/24/24 Unknown History mcg (50,000 unit) capsule mirabegron 25 mg tablet,extended 25 mg PO DAILY 06/27/24 07/24/24 Unknown History release 24 hr (Myrbetriq) amitriptyline 75 mg tablet mg 01/13/25 Unknown History aripiprazole 30 mg tablet mg 01/13/25 Unknown History lamotrigine 100 mg tablet mg 01/13/25 Unknown History lorazepam 1 mg tablet mg 01/13/25 Unknown History mirabegron 50 mg tablet,extended mg PO 01/13/25 Unknown History release 24 hr (Myrbetriq) ubrogepant 100 mg tablet (Ubrelvy) mg 01/13/25 Unknown History Allergies Allergy/AdvReac Type Severity Reaction Status Date / Time amoxicillin Allergy Intermediate Swelling Verified 04/23/25 08:32 Review of Systems Review of Systems: CONSTITUTIONAL: Positive for body aches. Negative for chills, fevers, or s weats. EYES: Denies visual changes, redness, or discharge. ENT: Positive for rhinorrhea, congestion, sore throat. Negative for otalgia. CARDIOVASCULAR: Denies chest pain, palpitations, or edema. RESPIRATORY: Positive for cough. Negative for dyspnea or wheezing. GASTROINTESTINAL: Denies abdominal pain, nausea, vomiting, or diarrhea. GENITOURINARY: Denies dysuria or hematuria. SKIN: Denies rash or itching. MUSCULOSKELETAL: Denies back pain, joint pain, or myalgia. NEUROLOGIC: Denies headache, numbness, or weakness. PSYCHIATRIC: Denies anxiety or depression. All other systems reviewed are negative, except as documented in HPI. [facility] Past Medical History Medical History Depression Bipolar disorder IBS (irritable bowel syndrome) Surgical History Surgical History History of bladder surgery H/O: hysterectomy History of section, low vertical Hx of appendectomy Family History Family History Mother Cervical cancer Grandparent Heart disease Social History Social History Smoking status: Former smoker Additional smoking assessment comments: Quit 6 months ago Alcohol intake: never Substance use: current Substance use type: marijuana Lack of Transportation: No Lack of Food: Never True Current Housing: I Have Housing Concerned About Future Housing: No Difficulty Paying Gas/Electric Bills: No Difficulty Paying for Meds: No Currently Unemployed: No Education: High School Diploma/GED Difficulty w/ Childcare or Family Care: No Living arrangements: with family Occupation/Education: occupation Gender identity (if verbalized by the patient): Female Sexual Orientation (if Verbalized by the Patient): Straight or Heterosexual Comments At the time of my signature, I reviewed and agree with the nursing past medical, surgical, social, and family history. There is no relevant family history pertinent to the patient complaint. Exam Narrative: GENERAL: This is a well-nourished, well-developed adult, in no apparent distress. They are non ill-appearing, nontoxic appearing. HEAD: normocephalic, atraumatic. EYES: Sclera clear/white. Vision is grossly intact. Conjunctiva normal bilaterally. Extraocular movements intact. EARS: External ears normal, auditory canals clear and without drainage, TMs without erythema or perforation. Hearing grossly intact. NOSE: External nose normal with no obvious nasal discharge, nasal turbinates erythematous, there is rhinorrhea. THROAT: Mucous membranes moist, posterior pharynx edematous and boggy, no red ness, without exudate. Uvula is midline. Postnasal drip present. NECK: Neck supple, non-tender without lymphadenopathy, masses or thyromegaly. CARDIOVASCULAR: Regular rate and rhythm without murmurs, gallops, or rubs. RESPIRATORY: Clear to auscultation. Breath sounds equal bilaterally. No wheezes, rales, or rhonchi. SKIN: warm, Dry, intact with no suspicious lesions or rash, good texture and turgor. NEURO: awake, alert, and oriented to person, place and time. There were no obvious focal neurologic abnormalities. EXTREMITIES: No joint tenderness, effusion, or edema noted. BACK: Nontender without deformity. Course Course Emergency Course: Portions of this record may have been created with voice recognition software Level of Care: Express Care Visit Vital Signs Vital signs: Vital Signs Temperature 97.9 F 04/23/25 08:24 Pulse Rate 102 H 04/23/25 08:24 Respiratory Rate 16 04/23/25 08:24 Blood Pressure 122/70 04/23/25 08:24 Pulse Oximetry 99 04/23/25 08:24 Oxygen Delivery Room Air 04/23/25 08:24 Temperature 97.9 F 04/23/25 08:24 Pulse Rate 102 H 04/23/25 08:24 Respiratory Rate 16 04/23/25 08:24 Blood Pressure 122/70 04/23/25 08:24 Pulse Oximetry 99 04/23/25 08:24 Oxygen Delivery Room Air 04/23/25 08:24 MDM - URI/Sore Throat MDM Narrative Medical decision making narrative: Rapid strep negative. Throat culture pending. Likely viral upper respiratory infection. Given severity of patient's symptoms will go ahead and give her prednisone. Will also prescribe benzonatate tablets as needed for cough. Offered viral testing she declined. Discussed physical exam findings. Advised supportive measures and signs/symptoms to go to the ER. Pt is appropriate for outpt treatment and f/u. Differential Diagnosis Differential diagnosis: Likely upper respiratory infection, viral infection, influenza and pharyngitis Lab Data Attestation: I reviewed the patient's lab results. Labs: Lab Results 04/23/25 Range/Units 08:37 POC Grp A Strep Screen Negative (Negative) Discharge Plan Discharge Clinical Impression: Viral infection Patient Disposition: Home Condition: Stable Instructions: Viral Syndrome (ED) Additional Instructions: Your rapid strep swab was negative today at [facility]. You will be notified in a few days if the culture comes back positive for strep, and appropriate antibiotics will be called in for you at that time. Your symptoms are likely due to a viral illness, which is not treated with antibiotics. Viral symptoms can be present for up to 10-14 days. Take Tylenol or ibuprofen for fever or pain, follow instructions on the bottle. Take the prednisone as directed. Take in the morning take with food. Take benzonatate as needed for cough. Rest and stay hydrated. Follow up with your PCP in 3-5 days if symptoms are not improving. Go to the ER immediately if you develop difficulty breathing, chest pains, severe nausea vomiting, or difficulty swallowing, or any other serious concerns. Patient Language: Romansh Prescriptions: New prednisone 20 mg tablet 40 mg PO DAILY 5 Days Qty: 10 0RF benzonatate 100 mg capsule 100 mg PO TID PRN (Reason: cough) Qty: 20 0RF No Action amitriptyline 75 mg tablet lorazepam 1 mg tablet lamotrigine 100 mg tablet aripiprazole 30 mg tablet mirabegron [Myrbetriq] 50 mg tablet extended release 24 hr PO Ubrelvy 100 mg tablet Premarin 0.625 mg Tablet 0.625 mg PO DAILY cholecalciferol (vitamin D3) 1,250 mcg (50,000 unit) capsule 1,250 mcg PO WEEKLY amitriptyline 50 mg tablet 75 mg PO QHS mirabegron [Myrbetriq] 25 mg tablet extended release 24 hr 25 mg PO DAILY Follow-up/Referrals: Gabi,Renetta Sylvester, [employer] [Primary Care Provider] - Stand Alone Forms: Work/School Release IP Time of Disposition: 08:49
== END 2025-04-23 09:07 | disposition home or self-care (01) ==
DX: B34.9 Viral infection, unspecified (principal); Z87.891 Personal history of nicotine dependence; F31.9 Bipolar disorder, unspecified
CPT/HCPCS: 87081; 87880; 99213; G0463